=== PATIENT | female | born 1960 | race Caucasian/White ===

== ENCOUNTER → 2017-05-29 | Outpatient (CLI) | payer BC ==
--- NOTE | 2017-05-29 10:16 | REPMRS ---
Patient History The patient states she had a clinical breast exam in Patient had first child at age 32. Family history of prostate cancer in father at age 60. Took hormonal contraceptives for 1 year. Digital Woman Screen Mammo: May 29, 2017 - Exam #: [id number] Bilateral CC and MLO view(s) were taken. Technologist: Rose Zimmerman, Technologist Prior study comparison: April 12, 2016, digital woman screen mammo performed at [facility]. March 06, 2015, digital woman screen mammo performed at [facility]. FINDINGS: There are scattered fibroglandular densities. There has been no change in the appearance of the mammogram from the prior studies. There is a mild amount of residual fibroglandular tissue which is fairly symmetric. There is no interval development of dominant mass, architectural distortion, or clustered microcalcification suggestive of malignancy. ASSESSMENT: BI-RADS/ACR category 1 mammogram. Negative. Recommendation Routine screening mammogram in 1 year (for women over age 40). This mammogram was interpreted with the aid of an FDA-approved computer-aided dectection system. Electronically Signed By: Jere Carter MD 05/29/17 1016
== END ==
LOC: M WHC 08:55
PROVIDERS: ATTEND Internal Medicine
DX: Z12.31 Encounter for screening mammogram for malignant neoplasm of breast (principal)

== ENCOUNTER → 2018-03-27 | Outpatient (REF) | payer BC | LOC: M LAB REF 03-28 12:02 | DX: L02.211 Cutaneous abscess of abdominal wall (principal) ==

== ENCOUNTER → 2018-03-28 | Outpatient (REF) | payer BC | LOC: M LAB REF 11:56 | DX: L02.211 Cutaneous abscess of abdominal wall (principal) | CPT/HCPCS: 87081 ==

== ENCOUNTER → 2018-08-02 | Outpatient (CLI) | payer BC ==
[~2018-08-02] MED LIST: ATOR1TAB19 PO; METF500T13 PO; TRUL0.5I SC
--- NOTE | 2018-08-02 13:40 | REPMRS ---
Patient History The patient states she has not had a clinical breast exam in over a year. Family history of prostate cancer at age 60 in father. Took hormonal contraceptives for 1 year. Digital Woman Screen Mammo: August 02, 2018 - Exam #: [id number] Bilateral CC and MLO view(s) were taken. Technologist: Adriana Ortiz, Technologist Prior study comparison: May 29, 2017, digital woman screen mammo performed at [facility]. April 12, 2016, digital woman screen mammo performed at [facility]. March 06, 2015, digital woman screen mammo performed at [facility]. FINDINGS: The breast tissue is almost entirely fat. There has been no change in the appearance of the mammogram from the prior studies. There is no interval development of dominant mass, architectural distortion, or clustered microcalcification typical of malignancy. 3-D tomosynthesis shows no additional findings. Assessment: BI-RADS/ACR category 1 mammogram. Negative Mammogram. Recommendation Routine screening mammogram of both breasts in 1 year (for women over age 40). This patient's Lifetime Breast Cancer RIsk is estimated at 11.9 %. This mammogram was interpreted with the aid of an FDA-approved computer-aided dectection system. Electronically Signed By: Dwayne Jo MD 08/02/18 [id number]
== END ==
LOC: M WHC 10:25
PROVIDERS: ATTEND Internal Medicine
DX: Z12.31 Encounter for screening mammogram for malignant neoplasm of breast (principal); Z80.42 Family history of malignant neoplasm of prostate

== ENCOUNTER → 2020-05-13 | Outpatient (CLI) | payer BC ==
--- NOTE | 2020-05-13 09:09 | REPMRS ---
Patient History The patient states she has not had a clinical breast exam in over a year. Patient is postmenopausal and had first child at age 32. Family history of prostate cancer at age 60 in father. Took hormonal contraceptives for 1 year. 3D TOMOSYNTHESIS WAS PERFORMED. [facility] lifetime risk for breast cancer is 12.8%. Volpara breast density b. Digital Woman Screen Mammo: May 13, 2020 - Exam #: [id number] Bilateral CC and MLO view(s) were taken. Technologist: Tracy Amin, Technologist Prior study comparison: August 02, 2018, bilateral digital woman screen mammo performed at [facility]. May 29, 2017, digital woman screen mammo performed at [facility]. FINDINGS: There are scattered fibroglandular densities. There has been no change in the appearance of the mammogram from the prior studies. There is a mild amount of residual fibroglandular tissue which is fairly symmetric. There is no interval development of dominant mass, architectural distortion, or clustered microcalcification suggestive of malignancy. Assessment: BI-RADS/ACR category 1 mammogram. Negative Mammogram. Recommendation Routine screening mammogram in 1 year (for women over age 40). This mammogram was interpreted with the aid of an FDA-approved computer-aided dectection system. Electronically Signed By: Jere Carter MD 05/13/20 0909
== END ==
LOC: M WHC 06:26
PROVIDERS: ATTEND Internal Medicine
DX: Z12.31 Encounter for screening mammogram for malignant neoplasm of breast (principal)

== ENCOUNTER → 2020-11-11 | Outpatient (REF) | payer BC | LOC: M LAB REF 11:11 | PROVIDERS: ATTEND Internal Medicine | DX: D64.9 Anemia, unspecified (principal) ==

== ENCOUNTER 2021-04-26 17:54 | Emergency (ER) | payer BC ==
[~2021-04-26] VITALS: Ht 168.9 cm; Wt 148.6 kg
--- OUTSIDE RECORDS SUMMARY | 2021-04-26 17:59 | CCD ---
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 Role Phone Mary Olivarez Unavailable PROBLEMS No Information ALLERGIES No Information ENCOUNTERS from 1960 to 2021-01-28 Encounter Location Date Provider Diagnosis [address] [phone] [place] [address] Jan, Mary Olivarez Diabetes mellitus with hyper glycemia E11.65 IMMUNIZATIONS No Information SOCIAL HISTORY Sex Assigned At : Social History Observation Description Sex Assigned At Unknown REASON FOR REFERRAL No Information VITAL SIGNS Weight 325.4 lbs Jan, Height 5'6.5" in Jan, BMI 51.73 kg/m2 Jan, MEDICATIONS No Information PROCEDURES No Information RESULTS No Results REASON FOR VISIT Follow Up Medical Nutrition Therapy r/t E11.65 Type 2 DM w/ hyperglycemia Goals Section No Information Health Concerns No Information MEDICAL EQUIPMENT No Information MENTAL STATUS No Information FUNCTIONAL STATUS No Information ASSESSMENTS Encounter Date Diagnosis Assessment Notes Treatment Notes Treatm ent Clinical Notes Jan, Diabetes mellitus with hyperglycemia (ICD-10 - E 11.65) Jan, Other Food Allergies: NKFA's Food Intolerance: lactose-uses almond milk REE= 2050 calories/day for weight loss Medical History: Obesity, Type II DM, Hypercholesterolemia, Metabolic Syndrome X, Pure Hypertriglyceridemia 24 hour food recall: Breakfast: 2 eggs and 1 egg white, 1 rye toast w/ butter, coffee w/ creamer ( 20 gm carb) Lunch: 1/4 of whole sub, grapes, chips, 4 oz lemonade (50 gm carb) Dinner: garden salad w/ ranch, 1 biscuit, 1/2 coconut shrimp, 1/2 baked potato (75 gm carb) Snacks: none noted Drinks: water 07/31/20: NO NEW AVAILABLE PER [id number]-0.2% A1c 10.4^ Glucose Fasting- 326^ EAG- 252^ BUN/Cr/GFR wnl Marky/Cr 23.1 B12 NOT AVAILABLE TG 331^ Cholesterol 253^ LDL 128^ HDL 59 TSH NOT AVAILABLE Blood Glucose 11/07-11/11/2020: Fastin, 129, 137, 159,161 ac lunch: 126,150, 120 ac dinner: 127 Pertinent Medications: Tresiba 60 units daily REDUCED TO 45 UNITS DAILY, Rousvastatin 10mg, Trulicity 1.5 weekly INCREASED TO 3.0 11/15/20, Metformin HCL ER 750 mg-2 tabs with dinner, MVI, Vit E-400 units, Vit D-1000 units Failed DM Medications: none noted Activity: Done w/ PT for sciatica-needs to do exercises on her own Eye Exam: havent been in long time- Used to go to [place]- will schedule Foot Exam: Never has had one per patient NEEDS FOOT EXAM FLU shot: Never Covid Immunization: completed w/ 2 doses Dental Visit: Dr. Chandra for peridontal doc-will have a root canal Nutrition Diagnosis: Excessive carbohydrate intake r/t nutrition knowledge d eficit regarding appropriate amount of carbohydrate to consume, as evidenced by previous A1c 10.4%, daily food record, and obesity. Nutrition Prescription: 1) Diet Education: 40-50 gm carb each meal 2) Goal Setting-Patient achieve A1c <7% by next lab draw. 3) Evidence of Learning: Verbalizes Understanding 4) Expected Adherence: Unable to Determine 5) Barriers to Adherence: Time needed to shop for groceries, preparation, and portability of healthy meals; eating too much while dining out Referring provider: Dr. Washington COMMENTS: Patient returned for follow-up MNT r/t Type 2 DM with hyperglycemia, now requiring insulin. Since last appointent patient had visit with provider and found out her A1c had improved to 6.2%!!! Trulicity was increased to 3.0 weekly from 1.5 and patient had been able to reduce from 60 units Tresiba daily to 45 units!! 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 Most blood sugar levels were close to target of 80-130 mg/dl. Reviewed 24 hour recall. Breakfast and lunch did not contain excessive carbohydrate however dinner did as patient was celebrating her 's birthday. Reviewed portion plate booklet and patient had made vegetables for tonche's dinner and she will focus on including with lunch and dinner daily while keeping carb to 50 gm each meal. No problems taking meds or getting refills in a timely manner. Reminded patient non carb foods including: non-starchy vegetables, lean meat, and healthy fats in small amounts, helped to keep her full and did not raise her blood sugar as much as carbohydrate. Next reviewed which food groups contained carbohydrate and the importance of increased fiber content for the carb choices she akes. Next discussed activity. Patient walked whie working. Again discussed wearing a Fit Bit to monitor activity and work on increasing. Advised to purchase a fit bit and monitor her steps with excessive hours of work. Patient could explain the rule of 15 and she could verbalize how to treat. Kenan was given a 2nd copy of meal planning for her work place to use as a reference. Patient seemed to understand and has RDs contact information. GOALS: I will lose to 296 pounds by 6 months-Apr 09 2021 by losing 3-4 pounds a month. 1) Eat 3 meals a day using carb ehokoftl-69-45 gm carb each meal 2) Check BS every am with goal 80-130 and after evening meal with goal under 180 mg/dl. 3) Keep food alex with food portions measured and carb count recorded. 4) Keep blood sugar/insulin record per MD. 5) If I feel funny I will check my blood sugar level. I will follow directions to get my blood sugar back within normal range. Monitor: _x_ Diet _x _WT _x__ Meds _x_ BS log _x_ Food Log _x_Activity PLAN OF TREATMENT Next Appt Details Feb 23, 2021 9-10am Reason: Provider Name:Mary Olivarez, 2021-02- 7 09:00:00 AM, [address] [facility], , [place], [address], Insurance Providers Payer Name Payer Address Payer Phone Insured Name Patient Relati onship to Insured Coverage Start Date Coverage End Date KHAI REYNOSO [facility] [id number] [facility] [place] [address] Chase Aguilar
--- OUTSIDE RECORDS SUMMARY | 2021-04-26 17:59 | CCD ---
Author Author [facility] Organization [facility] Address Unknown Phone Unavailable Care Team Providers Care Order Filler Name Role Phone Mary Olivarez Unavailable PROBLEMS Type Condition ICD9-CM Code [id number] Code Onset Dates Condition S tatus W/U Status Risk SNOMED Code Notes Problem Diabetes mellitus with hyperglycemia E11.65 Act marko confirmed [id number] ALLERGIES No Information ENCOUNTERS from 1960 to 2021-03-19 Encounter Location Date Provider Diagnosis [address] [phone] [place] [address] Mar, Mary Olivarez Diabetes mellitus with hyper glycemia E11.65 IMMUNIZATIONS No Information SOCIAL HISTORY Sex Assigned At : Social History Observation Description Sex Assigned At Unknown REASON FOR REFERRAL No Information VITAL SIGNS Weight 326.4 lbs Mar, Weight-kg 148.05 kg Mar, Height 5'6.5" in Mar, BMI 51.89 kg/m2 Mar, MEDICATIONS No Information PROCEDURES No Information RESULTS No Results REASON FOR VISIT Follow Up Medical Nutrition Therapy r/t E11.65 Type 2 DM w/ hyperglycemia Goals Section No Information Health Concerns No Information MEDICAL EQUIPMENT No Information MENTAL STATUS No Information FUNCTIONAL STATUS No Information ASSESSMENTS Encounter Date Diagnosis Assessment Notes Treatment Notes Treatm ent Clinical Notes Mar, Diabetes mellitus with hyperglycemia (ICD-10 - E 11.65) Mar, Other Food Allergies: NKFA's Food Intolerance: lactose-uses almond milk REE= 2050 calories/day for weight loss Medical History: Obesity, Type II DM, Hypercholesterolemia, Metabolic Syndrome X, Pure Hypertriglyceridemia 24 hour food recall: Breakfast: 1.5 c cheerios, 1/2 c almond milk ( 50m carb) Lunch: 2 soft tacos (34 gm carb) Dinner: 4 oz Kielbasa, 1c summer squash w/ peppers and onins, 1/2 c pasta with mushrooms, slice homemade pie (60 gm carb) Snacks: none noted Drinks: water 60 oz 07/31/20: PER [id number]-9.2% since November 2020 A1c 10.4^ Glucose Fasting- 326^ EAG- 252^ BUN/Cr/GFR wnl Marky/Cr 23.1 B12 NOT AVAILABLE TG 331^ Cholesterol 253^ LDL 128^ HDL 59 TSH NOT AVAILABLE Blood Glucose: 03/10-03/16/2021: Fastin, 128, 156, 137, 125, (corn on cob the night before and hamburger bun) 163,174(pie the night before) Pertinent Medications: Tresiba 60 units daily REDUCED TO 44 UNITS DAILY down to 34 units now 03/16/21, Rousvastatin 10mg, Trulicity 1.5 weekly INCREASED TO 3.0 11/15/20, Metformin HCL ER 750 mg-2 tabs with dinner, MVI, Vit E-400 units, Vit D- 1000 units Failed DM Medications: none noted Activity: Done w/ PT for sciatica-is completing PT exercises on her own daily Eye Exam: havent been in long time- Used to go to [place]- will schedule Foot Exam: Never has had one per patient NEEDS FOOT EXAM FLU shot: Never Covid Immunization: completed w/ 2 doses Dental Visit: Dr. Chandra for peridontal doc-will have a root canal Nutrition Diagnosis: Excessive carbohydrate intake r/t nutrition knowledge deficit regarding appropriate amount of carbohydrate to consume, as evidenced by previous A1c 10.4% improved to 6.2% November 2020, daily food record, and obesity. Nutrition Prescription: 1) Diet Education: 40-50 gm carb each meal 2) Goal Setting-Patient maintain A1c <7% by next lab draw. 3) Evidence of Learning: Verbalizes Understanding 4) Expected Adherence: Unable to Determine-loves to cook and eat carbs 5) Barriers to Adherence: Time needed to shop for groceries, preparation, and portability of healthy meals; eating too much while dining out Referring provider: Dr. Washington COMMENTS: Patient returned for follow-up MNT r/t Type 2 DM with hyperglycemia, requiring insulin along with increase in GLP-1 since last November 2020. Trulicity was increased to 3.0 weekly from 1.5 and patient had been able to reduce from 60 units Tresiba daily to 44 units as of last appointent and today had decreased to 44 units daily!! Bill was reducing carb intake to be able to reduce need for in sulin and help her to lose weight. Bill had been gaining weight for months but this visit she lost 1#, as desired!! Bill kept food record daily and tried to stay between 40-50 gm carb each meal. Patient also recorded fasting blood sugar and on this record as well as units of Tresiba she took. Reviewed 24 hour recall. Breakfast and lunch meals were within carb allotment but dinner exceeded as Kenan made an apple pie and ate a slice. Reviewed portion plate booklet and Bill will focus on keeping carb to 50 gm each meal or less. No problems taking meds or getting refills [...] choices she akes. Next discussed activity. 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 Bill's did move the eliptical into a more appealing spot in the house so she is getting closer to using it, as soon as he finished reassembling it. Patient could explain the rule of 15 and she could verbalize how to treat but had not experienced hypoglycemia since last meeting. Kenan was given a 2nd copy of meal planning for her work place to use as a reference at last visit. Patient seemed to understand and has RDs contact information. GOALS: To continue to be allowed to continue to reduce my insulin and lose weight I will: 1) I will walk one lap around the parking lot 3 times a week on Monday-Monday and . 2) Eat 3 meals a day using carb counting 40-50 gm carb each meal. 2) Check BS every am with goal 80-130 and after evening meal with goal under 180 mg/dl. 3) Keep food diary with food portions measured and carb count recorded. 4) Keep blood sugar/insulin record per MD. 5) If I feel funny I will check my blood sugar level. I will follow directions to get my blood sugar back within normal range. Monitor: _x_ Diet _x _WT _x__ Meds _x_ BS log _x_ Food Log _x_Activity PLAN OF TREATMENT Next Appt Details 04/08/21 4-4:30-pm Reason: Provider Name:Mary Olivarez, 2021-03-3 0 04:00:00 PM, [address] [facility], , [place], [address], Insurance Providers Payer Name Payer Address Payer Phone Insured Name Patient Relati onship to Insured Coverage Start Date Coverage End Date BCBS ANAM REYNOSO PPO [id number] [facility] [place] [address] Chase Aguilar
--- OUTSIDE RECORDS SUMMARY | 2021-04-26 17:59 | CCD | Continuity of Care Document ---
Author Author Cheryl Washington MD Organization Unknown Address [address] [facility] [address] [place] [address] Phone [phone] Care Team Providers Care Brim Edge Trimmer Name Role Phone Jack Washington JR, MD AUTM Unavailable [employer] AUTM [phone] Problems Active Problems Provider Date Metabolic syndrome X Jack Washington MD Onset: 02/21/2011 Pure hypercholesterolemia Jack Washington MD Onset: 02/21 Obesity Jack Washington MD Onset: 02/21/2011 Pure hyperglyceridemia Jack Washington MD Onset: 02/22/20 11 Cellulitis and abscess of trunk YARY Grady Onset: 08/17/2011 Type 2 diabetes mellitus Jack Washington MD Onset: 2016 Social History Type Date Description Comments Sex Unknown ETOH Use Consumes 3 glasses of wine per w [place] Tobacco Use Start: Unknown End: Unknown Patient is a former smoker SMOKED FOR 8YRS 1 DOLORES A DAY Allergies, Adverse Reactions, Alerts Active Allergies Criticality Reaction | Severity Comments Date Sulfa Unable to assess criticality 06/23/2010 Keflex Unable to assess criticality Facial edema and itching 08/22/2011 Medications Active Medications SIG Qnty Indications Ordering Provide r Date Trulicity 3mg/0.5ML Solution Pen-I nject inject 1 subcutaneously weekly 2ml Jack wu MD 11/12/2020 Onetouch Delica Plus Lancets Fine 30G Plus 30G Misc test two times a day and as needed 200units E11.65 Jack Washington MD 09/18/2020 Onetouch Ultra Strips Test Three Times A Week 100units Jack Washington MD 08/17/2020 Novofine 32G X 6 mm Misc Use One A Day With Trieseba 100unkym Washington MD 08/06/2020 Tresiba Flextouch 20 0Unit/ML Solution Pen-Inject inject 50 units under the skin daily - and increase by 2 units every 3 days. 27units Jack Washington MD 07/31/2020 Diflucan 150mg Tablets 1 by mouth repeat every 72 hours x 3 doses then once weekly x 12 weeks 15tabs EMY Salecdo 06/03/2020 Vagifem 10mcg Tablets insert one tablet vaginally nightly for 2 weeks then twice a week 18tabs YARY Grady 08/22/2019 Rosuvastatin Calcium 10mg Tablets Take One Tablet By Mouth Every Day 30tabs Jack Washington MD 07/25/2018 BD Pen Needle/Ultrafine/29G X 12.7mm 29G X 12.7mm Misc use every day E11.9 100units Jack Washington MD 01/06/2017 Onetouch Ultra Blue Strips use two times a day to check blood sugar E11.9 150units Juan khan M.D. 01/06/2017 Metformin HCL ER 750mg Tablets ER 24HR Take 2 Tablets By Mouth With Supper Daily 60tabs Bucky Washington MD 11/17/2011 Multivitamins Tablets 1 po q d Jack Washington MD 04/27/2011 Vitamin E Complex 400Unit Capsules Jack Washington MD 04/27/2011 Vitamin D-1000 1000Unit Tablets 1 by mouth every day 100tabs Jack Washington MD 04/27/2011 Ibuprofen 800mg Tablets Take One Tablet By Mouth Every 6 To 8 Hours With Food Unknown History Medications Trulicity 1.5mg/0.5ML Solution Pen -Inject 1 injection weekly 4ml Jack Washington MD 021 - 11/12/2020 Medications Administered in Office Medication SIG Qnty Indications Ordering Provider Date Therapeutic Injection Injection YARY Grady 10/16/2007 Immunizations Description No Information Available Vital Signs Date Vital Result Comment 03/24/2021 1:50pm BP Systolic 128 mmHg BP Diastolic 80 mmHg Heart Rate 78 /min Height 66.5 inches 5'6.50" Weight 326.00 lb BMI (Body Mass Index) 51.8 kg/m2 11/12/2020 9:37am BP Systolic 124 mmHg BP Diastolic 78 mmHg Heart Rate 76 /min Height 66.5 inches 5'6.50" Weight 321.00 lb BMI (Body Mass Index) 51.0 kg/m2 Results Test Acquired Date Facility Test Result H/L Range Note A1c 03/23/2021 [facility] , Television Station Manager: Dr Jack Washington [place] [address] [phone] Hba1c 5.8 % High <5.7 1 Est Avg Glucose 120 mg/dL High 60 - 110 Comprehensive Chem Profile 03/23/2021 [facility], Television Station Manager: Dr Jack Washington [place] [address] [phone] Glucose 108 mg/dL High 74 - 99 2 BUN 13 mg/dL 7 - 18 Creatinine 0.9 mg/dL 0.6 - 1.3 Sodium 142 mEq/L 136 - 145 Potassium 4.3 mEq/L 3.5 - 5.1 Chloride 105 mEq/L 98 - 107 Carbon Dioxide 32 mEq/L 21 - 32 Calcium 8.7 mg/dL 8.5 - 10.1 Alk. Phosphatase 87 mg/dL 46 - 116 Total Bilirubin 0.6 mg/dL 0.2 - 1.0 Ast (Sgot) 16 U/L 15 - 37 Alt (SGPT) 17 U/L 12 - 78 Albumin 3.4 g/dL 3.4 - 5.0 Total Protein 6.6 g/dL 6.4 - 8.2 A/G Ratio 1.06 CALC 1.00 - 1.90 GFR >= 60 mL/min >60 GFR >= 60 mL/min >60 3 Lipid Profile 03/23/2021 [facility] , Television Station Manager: Dr Jack Washington [place] [address] [phone] Cholesterol 201 mg/dL High 131 - 200 Triglycerides 227 mg/dL High 30 - 150 HDL Cholesterol 52 mg/dL 35 - 60 LDL (Calculated) 104 CALC 50 - 159 Microalbumin/Creatinine Urine 03/23/2021 [facility] Television Station Manager: Dr Jack Washington [place], [place] [id number] [phone] Microalbumin Urine 10.3 mg/L 1.3 - 20.0 Urine Creatinine 142.8 mg/dL High 30.0 - 125.0 Microalb/Creat Ratio 7.2 ug/mg 0.0 - 30.0 Laboratory test finding 11/11/2020 [facility] Television Station Manager: [place] [address] [phone] Thyroid Stimulating Hormone 1.42 uIU/mL 0.3 6 - 3.74 Laboratory test finding 11/11/2020 [facility] [address] [id number] [phone] Vitamin B12 Level > 2000 pg/mL High 247-911 4 A1c 11/11/2020 [facility] Television Station Manager: Dr Jack Washington [place] [address] [phone] Hba1c 6.1 % High <5.7 5 Est Avg Glucose 128 mg/dL High 60 - 110 Basic Metabolic Panel 11/11/2020 [facility] Television Station Manager: [place] [address] [phone] Glucose 161 mg/dL High 74 - 99 6 BUN 14 mg/dL 7 - 18 Creatinine 0.8 mg/dL 0.6 - 1.3 Sodium 139 mEq/L 136 - 145 Potassium 4.3 mEq/L 3.5 - 5.1 Chloride 102 mEq/L 98 - 107 Carbon Dioxide 29 mEq/L 21 - 32 Calcium 8.5 mg/dL 8.5 - 10.1 GFR >= 60 mL/min >60 GFR >= 60 mL/min >60 7 1 Lab Result Notes: Pre-Diabetes 5.7 - 6.4 % Diabetes = or > 6.5% 2 100-125 mg/dL PRE-DIABET ES/FASTING >126 mg/dL DIABETES/FASTING 3 CHRONIC KIDNEY DISEASE STAGI NG PER NKF STAGE I & II GFR >= 60 NORMAL TO MILDLY DECREASED STAGE III GFR 30-59 MODERATELY DECREASED STAGE IV GFR 15-29 SEVERELY DECREASED STAGE V GFR <15 VERY LITTLE GFR LEFT ESRD GFR <15 ON HIMS MANAGER 4 VITAMIN B12 NORMAL RANGE NORMAL 247 - 911 PG/ML INDETERMINATE 211 - 246 PG/ML DEFICIENT LESS THAN 211 PG/ML 5 Lab Result Notes: Pre-Diabetes 5.7 - 6.4 % Diabetes = or > 6.5% 6 100-125 mg/dL PRE-DIABET ES/FASTING >126 mg/dL DIABETES/FASTING 7 CHRONIC KIDNEY DISEASE STAGI NG PER NKF STAGE I & II GFR >= 60 NORMAL TO MILDLY DECREASED STAGE III GFR 30-59 MODERATELY DECREASED STAGE IV GFR 15-29 SEVERELY DECREASED STAGE V GFR <15 VERY LITTLE GFR LEFT ESRD GFR <15 ON HIMS MANAGER Procedures Date Code Description Status 11/12/2020 54902 Office/Outpatient Established Lo w MDM 20-29 Min Completed 05/13/2020 [id number] Mammogram Completed 08/02/2018 [id number] Mammogram Completed 05/29/2017 [id number] Mammogram Completed 04/12/2016 [id number] Mammogram Completed 07/14/2015 [id number] Colonoscopy Completed 03/06/2015 [id number] Mammogram Completed 12/25/2013 [id number] Mammogram Completed 05/15/2012 [id number] Mammogram Completed 05/12/2011 [id number] Mammogram Completed 05/04/2010 [id number] Mammogram Completed 01/30/2008 [id number] Bone Mineral Density Test Comple genaro 07/19/2004 [id number] Colonoscopy Completed Medical Devices Description No Information Available Encounters Type Date Location Provider Dx Diagnosis Office Visit 11/12/2020 9:40a [facility] Jack Washington MD E11.42 Type 2 diabetes mellitus with diabetic p olyneuropathy Z79.4 residential (current) use of i nsulin E78.00 Pure hypercholesterolemia, u nspecified E66.01 Morbid (severe) obesity due to excess calories Z68.43 Body mass index [BMI] 50.0-5 9.9, adult Assessments Date Code Description Provider 11/12/2020 E11.42 Type 2 diabetes mellitus with di abetic polyneuropathy Jack Washington MD 11/12/2020 Z79.4 emt intermediate (current) use of insul in Jack Washington MD 11/12/2020 E78.00 Pure hypercholesterolemia, unspe cified Jack Washington MD 11/12/2020 E66.01 Morbid (severe) obesity due to e xcess calories Jack Washington MD 11/12/2020 Z68.43 Body mass index [BMI] 50.0-59.9, adult Jack Washington MD 11/11/2020 D64.9 Anemia, unspecified Jack adam MD 11/11/2020 D64.9 Anemia, unspecified Lab Schedule 11/11/2020 E11.65 Type 2 diabetes mellitus with hy perglycemia Jack Washington MD 11/11/2020 E11.65 Type 2 diabetes mellitus with hy perglycemia Lab Schedule 11/11/2020 E78.00 Pure hypercholesterolemia, unspe cified Jack Washington MD 11/11/2020 E78.00 Pure hypercholesterolemia, unspe cified Lab Schedule Plan of Treatment No Information Available Functional Status Description No Information Available Mental Status Description No Information Available Referrals Description No Information Available
--- OUTSIDE RECORDS SUMMARY | 2021-04-26 17:59 | CCD | Continuity of Care Document ---
Author Author Cheryl Washington MD Organization Unknown Address [address] [facility] [address] [place] [address] Phone [phone] Care Team Providers Care Rodeo Clown Name Role Phone Jack Washington JR, MD AUTM Unavailable [employer] AUTM [phone] Problems Active Problems Provider Date Metabolic syndrome [...] Consumes 3 glasses of wine per w [place] Tobacco Use Start: Unknown End: Unknown Patient [...] once weekly x 12 weeks 15tabs EMY Salcedo 06/03/2020 Vagifem 10mcg Tablets insert one tablet [...] Test Result H/L Range Note A1c 03/23/2021 [facility] , Research Coordinator: Dr Jack [place] [address] [phone] Hba1c 5.8 % High <5.7 1 Est Avg Glucose 120 mg/dL High 60 - 110 Comprehensive Chem Profile 03/23/2021 [facility], Research Coordinator: [place] Jack [place] [address] [phone] Glucose 108 mg/dL High 74 - 99 [...] 60 mL/min >60 3 Lipid Profile 03/23/2021 [facility] , Research Coordinator: Dr Jack [place] [address] [phone] Cholesterol 201 mg/dL High 131 - 200 Triglycerides 227 mg/dL High 30 - 150 HDL Cholesterol 52 mg/dL 35 - 60 LDL (Calculated) 104 CALC 50 - 159 Microalbumin/Creatinine Urine 03/23/2021 [facility] Research Coordinator: Dr Jack Washington [place], [place] [id number] [phone] Microalbumin Urine 10.3 mg/L 1.3 - 20.0 Urine Creatinine 142.8 mg/dL High 30.0 - 125.0 Microalb/Creat Ratio 7.2 ug/mg 0.0 - 30.0 Laboratory test finding 11/11/2020 [facility] Research Coordinator: [place] [address] [phone] Thyroid Stimulating Hormone 1.42 uIU/mL 0.3 6 - 3.74 Laboratory test finding 11/11/2020 [facility] [address] [id number] [phone] Vitamin B12 Level > 2000 pg/mL High 247-911 4 A1c 11/11/2020 [facility] Research Coordinator: Dr Jack Washington [place] [id number] [phone] Hba1c 6.1 % High <5.7 5 Est Avg Glucose 128 mg/dL High 60 - 110 Basic Metabolic Panel 11/11/2020 [facility] Research Coordinator: [place] [address] [phone] Glucose 161 mg/dL High 74 - 99 [...] LITTLE GFR LEFT ESRD GFR <15 ON AGRICULTURAL EDUCATION TEACHER 4 VITAMIN B12 NORMAL RANGE NORMAL 247 [...] LITTLE GFR LEFT ESRD GFR <15 ON AGRICULTURAL EDUCATION TEACHER Procedures Date Code Description Status 03/24/2021 48394 Office/Outpatient Established Mo d MDM 30-39 Min Completed 11/12/2020 11961 Office/Outpatient Established Lo w MDM 20-29 Min Completed 05/13/2020 [id number] Mammogram Completed 08/02/2018 [id number] Mammogram Completed 05/29/2017 [id number] Mammogram Completed 04/12/2016 [id number] Mammogram Completed 07/14/2015 [id number] Colonoscopy Completed 03/06/2015 [id number] Mammogram Completed 12/25/2013 [id number] Mammogram Completed 05/15/2012 [id number] Mammogram Completed 05/12/2011 [id number] Mammogram Completed 05/04/2010 [id number] Mammogram Completed 01/30/2008 [id number] Bone Mineral Density Test Comple geanro 07/19/2004 [id number] Colonoscopy Completed Medical Devices Description No Information Available Encounters Type Date Location Provider Dx Diagnosis Office Visit 03/24/2021 [facility] E11.42 Type 2 diabetes mellitus with diabetic p olyneuropathy Z79.4 machine sorter (current) use of i nsulin E78.00 Pure hypercholesterolemia, u nspecified I87.2 Venous insufficiency (chroni c) (peripheral) E66.01 Morbid (severe) obesity due to excess calories Z68.43 Body mass index [BMI] 50.0-5 9.9, adult Office Visit 11/12/2020 9:40a [facility] E11.42 Type 2 diabetes mellitus with diabetic p olyneuropathy Z79.4 machine sorter (current) use of i nsulin E78.00 Pure hypercholesterolemia, u nspecified E66.01 Morbid (severe) obesity due to excess calories Z68.43 Body mass index [BMI] 50.0-5 9.9, adult Assessments Date Code Description Provider 03/24/2021 E11.42 Type 2 diabetes mellitus with di abetic polyneuropathy Jack Washington MD 03/24/2021 Z79.4 senior living (current) use of insul in Jack Washington MD 03/24/2021 E78.00 Pure hypercholesterolemia, unspe cified Jack Washington MD 03/24/2021 I87.2 Venous insufficiency (chronic) ( peripheral) Jack Washington MD 03/24/2021 E66.01 Morbid (severe) obesity due to e xcess calories Jack Washington MD 03/24/2021 Z68.43 Body mass index [BMI] 50.0-59.9, adult Jack Washington MD 03/23/2021 E11.65 Type 2 diabetes mellitus with hy perglycemia Jack Washington MD 03/23/2021 E11.65 Type 2 diabetes mellitus with hy perglycemia Lab Schedule 03/23/2021 E78.00 Pure hypercholesterolemia, unspe cified Jack Washington MD 03/23/2021 E78.00 Pure hypercholesterolemia, unspe cified Lab Schedule 11/12/2020 E11.42 Type 2 diabetes mellitus with di abetic polyneuropathy Jack Washington MD 11/12/2020 Z79.4 senior living (current) use of insul in Jack Washington [...] unspe cified Lab Schedule Plan of Treatment Future Appointment(s):* 07/27/2021 8:10 am - Lab Schedule at [facility] * 07/28/2021 2:45 pm - Jack Washington MD at [facility] 03/24/2021 - Jack Washington MD* E11.42 Type 2 diabetes mellitus with diabetic polyneuropathy * Z79.4 machine sorter (current) use of insulin * E78.00 Pure hypercholesterolemia, unspecified * I87.2 Venous insufficiency (chronic) (peripheral) * E66.01 Morbid (severe) obesity due to excess calories * Z68.43 Body mass index [BMI] 50.0-59.9, adult Functional Status Description No Information Available Mental Status Description No Information Available Referrals Description No Information Available
--- OUTSIDE RECORDS SUMMARY | 2021-04-26 17:59 | CCD | Continuity of Care Document ---
Author Author Lab Schedule, Cheryl Organization Unknown Address [address] [address] Phone Unavailable Care Team Providers Care Music Assistant Name Role Phone Jack Washington JR, MD AUTM Unavailable [employer] AUTM [phone] Problems Active Problems Provider Date Metabolic syndrome X Jack Washington MD Onset: 02/21/2011 Pure hypercholesterolemia Jack Washington MD Onset: 02/21 Obesity Jack Washington MD Onset: 02/21/2011 Pure hyperglyceridemia Jack Washington MD Onset: 02/22/20 11 Cellulitis and abscess of trunk Marilee Pinedo, YARY Onset: 08/17/2011 Type 2 diabetes mellitus Jack Washington MD Onset: 2016 Social History Type Date Description Comments Sex Unknown ETOH Use Consumes 3 glasses of wine per w ak chin Tobacco Use Start: Unknown End: Unknown Patient [...] Misc Use One A Day With Trieseba 100units Jack Washington MD 08/06/2020 Tresiba Flextouch 20 0Unit/ML [...] Test Result H/L Range Note A1c 03/23/2021 [facility] , Drop Press Hand: [place] [id number] [phone] Hba1c 5.8 % High <5.7 1 Est Avg Glucose 120 mg/dL High 60 - 110 Comprehensive Chem Profile 03/23/2021 [facility], Drop Press Hand: [place] [id number] [phone] Glucose 108 mg/dL High 74 - 99 [...] 60 mL/min >60 3 Lipid Profile 03/23/2021 [facility] , Drop Press Hand: Dr Jack Torres MD [id number] [phone] Cholesterol 201 mg/dL High 131 - 200 Triglycerides 227 mg/dL High 30 - 150 HDL Cholesterol 52 mg/dL 35 - 60 LDL (Calculated) 104 CALC 50 - 159 Microalbumin/Creatinine Urine 03/23/2021 [facility], Drop Press Hand: Dr Jack Washington [place], [place] [id number] [phone] Microalbumin Urine 10.3 mg/L 1.3 - 20.0 Urine Creatinine 142.8 mg/dL High 30.0 - 125.0 Microalb/Creat Ratio 7.2 ug/mg 0.0 - 30.0 Laboratory test finding 11/11/2020 [facility] Drop Press Hand: [place] [address] [phone] Thyroid Stimulating Hormone 1.42 uIU/mL 0.3 6 - 3.74 Laboratory test finding 11/11/2020 [facility] [address] [place] [address] [phone] Vitamin B12 Level > 2000 pg/mL High 247-911 4 A1c 11/11/2020 [facility] Drop Press Hand: [place] [address] [phone] Hba1c 6.1 % High <5.7 5 Est Avg Glucose 128 mg/dL High 60 - 110 Basic Metabolic Panel 11/11/2020 [facility] Drop Press Hand: [place] [address] [phone] Glucose 161 mg/dL High 74 - 99 [...] LITTLE GFR LEFT ESRD GFR <15 ON MYCOLOGY TEACHER 4 VITAMIN B12 NORMAL RANGE NORMAL [...] LITTLE GFR LEFT ESRD GFR <15 ON MYCOLOGY TEACHER Procedures Date Code Description Status 11/12/2020 38840 Office/Outpatient Established Lo w MDM 20-29 Min Completed 05/13/2020 [id number] Mammogram Completed 08/02/2018 [id number] Mammogram Completed 05/29/2017 [id number] Mammogram Completed 04/12/2016 [id number] Mammogram Completed 07/14/2015 [id number] Colonoscopy Completed 03/06/2015 [id number] Mammogram Completed 12/25/2013 [id number] Mammogram Completed 05/15/2012 [id number] Mammogram Completed 05/12/2011 [id number] Mammogram Completed 05/04/2010 [id number] Mammogram Completed 01/30/2008 [id number] Bone Mineral Density Test Comple genaro 07/19/2004 [id number] Colonoscopy Completed Medical Devices Description No Information Available Encounters Type Date Location Provider Dx Diagnosis Office Visit 11/12/2020 9:40a [facility] Jack Washington MD E11.42 Type 2 diabetes mellitus with diabetic p olyneuropathy Z79.4 detention (current) use of i nsulin E78.00 Pure hypercholesterolemia, u nspecified E66.01 Morbid (severe) obesity due to excess calories Z68.43 Body mass index [BMI] 50.0-5 9.9, adult Assessments Date Code Description Provider 03/24/2021 E11.42 Type 2 diabetes mellitus with di abetic polyneuropathy Jack Washington MD 03/24/2021 Z79.4 detention (current) use of insul in Jack Washington [...] abetic polyneuropathy Jack Washington MD 11/12/2020 Z79.4 ferry terminal agent (current) use of insul in Jack Washington [...] 07/27/2021 8:10 am - Lab Schedule at [facility] * 07/28/2021 2:45 pm - Jack Washington MD at [facility] 03/24/2021 - Jack Washington MD* E11.42 Type 2 diabetes mellitus with diabetic polyneuropathy * Z79.4 ferry terminal agent (current) use of insulin * E78.00 Pure hypercholesterolemia, unspecified * I87.2 Venous insufficiency (chronic) (peripheral) * E66.01 Morbid (severe) obesity due to excess calories * Z68.43 Body mass index [BMI] 50.0-59.9, adult Functional Status Description No Information Available Mental Status Description No Information Available Referrals Description No Information Available
--- OUTSIDE RECORDS SUMMARY | 2021-04-26 17:59 | CCD | Continuity of Care Document ---
Author Author Lab Schedule, Cheryl Organization Unknown Address [address] [address] Phone Unavailable Care Team Providers Care Dcs Engineer Name Role Phone Jack Washington JR, MD AUTM Unavailable [employer] AUTM [phone] Problems Active Problems Provider Date Metabolic syndrome X Jack Washington MD Onset: 02/21/2011 Pure hypercholesterolemia Jack Washington MD Onset: 02/21 Obesity Jack Washington MD Onset: 02/21/2011 Pure hyperglyceridemia Jack Washington MD Onset: 02/22/20 11 Cellulitis and abscess of trunk Marilee Pinedo, YARY Onset: 08/17/2011 Type 2 diabetes mellitus Jack Wsahington MD Onset: 2016 Social History Type Date Description Comments Sex Unknown ETOH Use Consumes 3 glasses of wine per w tangirnaq Tobacco Use Start: Unknown End: Unknown Patient [...] Test Result H/L Range Note A1c 03/23/2021 [facility] , Film Producer: [place] [id number] [phone] Hba1c 5.8 % High <5.7 1 Est Avg Glucose 120 mg/dL High 60 - 110 Comprehensive Chem Profile 03/23/2021 [facility], Film Producer: [place] [id number] [phone] Glucose 108 mg/dL High 74 - 99 [...] 60 mL/min >60 3 Lipid Profile 03/23/2021 [facility] , Film Producer: Dr Jack Torres [place] [id number] [phone] Cholesterol 201 mg/dL High 131 - 200 Triglycerides 227 mg/dL High 30 - 150 HDL Cholesterol 52 mg/dL 35 - 60 LDL (Calculated) 104 CALC 50 - 159 Microalbumin/Creatinine Urine 03/23/2021 [facility], Film Producer: Dr Jack Washington [place], [place] [id number] [phone] Microalbumin Urine 10.3 mg/L 1.3 - 20.0 Urine Creatinine 142.8 mg/dL High 30.0 - 125.0 Microalb/Creat Ratio 7.2 ug/mg 0.0 - 30.0 Laboratory test finding 11/11/2020 [facility] Film Producer: [place] [address] [phone] Thyroid Stimulating Hormone 1.42 uIU/mL 0.3 6 - 3.74 Laboratory test finding 11/11/2020 [facility] [address] [place] [address] [phone] Vitamin B12 Level > 2000 pg/mL High 247-911 4 A1c 11/11/2020 [facility] Film Producer: [place] [address] [phone] Hba1c 6.1 % High <5.7 5 Est Avg Glucose 128 mg/dL High 60 - 110 Basic Metabolic Panel 11/11/2020 [facility] Film Producer: [place] [address] [phone] Glucose 161 mg/dL High 74 - 99 [...] LITTLE GFR LEFT ESRD GFR <15 ON DEPUTY CONTROLLER 4 VITAMIN B12 NORMAL RANGE NORMAL 247 [...] LITTLE GFR LEFT ESRD GFR <15 ON DEPUTY CONTROLLER Procedures Date Code Description Status 11/12/2020 66260 Office/Outpatient Established Lo w MDM 20-29 Min Completed 05/13/2020 [id number] Mammogram Completed 08/02/2018 [id number] Mammogram Completed 05/29/2017 [id number] Mammogram Completed 04/12/2016 [id number] Mammogram Completed 07/14/2015 [id number] Colonoscopy Completed 03/06/2015 [id number] Mammogram Completed 12/25/2013 [id number] Mammogram Completed 05/15/2012 [id number] Mammogram Completed 05/12/2011 [id number] Mammogram Completed 05/04/2010 [id number] Mammogram Completed 01/30/2008 [id number] Bone Mineral Density Test Comple genaro 07/19/2004 [id number] Colonoscopy Completed Medical Devices Description No Information Available Encounters Type Date Location Provider Dx Diagnosis Office Visit 11/12/2020 9:40a [facility] Jack Washington MD E11.42 Type 2 diabetes mellitus with diabetic p olyneuropathy Z79.4 detention (current) use of i nsulin E78.00 Pure hypercholesterolemia, u nspecified E66.01 Morbid (severe) obesity due to excess calories Z68.43 Body mass index [BMI] 50.0-5 9.9, adult Assessments Date Code Description Provider 11/12/2020 E11.42 Type 2 diabetes mellitus with di abetic polyneuropathy Jack Washington MD 11/12/2020 Z79.4 detention (current) use of insul in [...]
--- OUTSIDE RECORDS SUMMARY | 2021-04-26 17:59 | CCD ---
Author Author [facility] Organization [facility] Address Unknown Phone Unavailable Care Team Providers Care [employer] Name Role Phone Mary Olivarez Unavailable PROBLEMS Type Condition ICD9-CM Code [id number] Code Onset Dates Condition S tatus W/U Status Risk SNOMED Code Notes Problem Diabetes mellitus with hyperglycemia E11.65 Act marko confirmed [id number] ALLERGIES No Information ENCOUNTERS from 1960 to 2021-04-15 Encounter Location Date Provider Diagnosis [address] [phone] [place] [address] Mar, Mary Olivarez Diabetes mellitus with hyper glycemia E11.65 IMMUNIZATIONS No Information SOCIAL HISTORY Sex Assigned At : Social History Observation Description Sex Assigned At Unknown REASON FOR REFERRAL No Information VITAL SIGNS Weight 327.7 lbs Mar, Weight-kg 148.64 kg Mar, Height 5'6.5" in Mar, BMI 52.09 kg/m2 Mar, MEDICATIONS No Information PROCEDURES No [...] Pure Hypertriglyceridemia 24 hour food recall: Breakfast: oatmeal w/ peanut butter and blueberries, 1/2 c almond milk (45 gm carb) Lunch: 1/2 salami sandwich w/ cheese, dante lettuce on wheat w/ barron (34 gm carb) PM: wine tasting at business Dinner: spaghetti w/ meat sauce with mushrooms, slice homemade pie (60 gm carb) Snacks: none noted Drinks: water 60 oz LABS: 03/23/21: A1C-5.8%, EAG-120, gluc-108, B/Cr/GFR, Ca, liver enzymes-wnl, Chol - 201^, TG-227^, HDL-52, LDL-104, marky/cr-7.2 PER SLRIBJF-A4P-2.2% since November 2020 07/31/20: A1c 10.4^ Glucose Fasting- 326^ EAG- 252^ BUN/Cr/GFR wnl Marky/Cr 23.1 B12 NOT AVAILABLE TG 331^ Cholesterol 253^ LDL 128^ HDL 59 TSH NOT AVAILABLE Blood Glucose: 04/02-04/08/2021 (only 16 units of Toujeo daily now): am-182, 162, 176, 196, 174, 187, 235(after spaghetti, wine testing, bread) Pertinent Medications: Tresiba 60 units NOW 16 UNITS A DAY-SINCE 04/05/21!!, Rousvastatin 10mg, Trulicity 1.5 weekly INCREASED TO 3.0 11/15/20, Metformin HCL ER 750 mg-2 tabs with dinner, MVI, Vit E-400 units, Vit D-1000 units Failed DM Medications: none noted Activity: Done w/ PT for sciatica-is completing PT exercises on her own daily Eye Exam: havent been in long time- Used to go to [place]- will schedule Foot Exam: Never has had one per patient NEEDS FOOT EXAM FLU shot: Never Covid Immunization: completed w/ 2 doses Dental Visit: Dr. Chandra for peridontal doc-will have a root canal Nutrition Diagnosis: Excessive carbohydrate intake r/t failure to apply nutrition knowledge regarding appropriate amount of carbohydrate to consume, as evidenced by previous A1c 10.4% improved to 5.8% on 03/23/2021, daily food record, and obesity. Nutrition Prescription: 1) Diet Education: 40-50 gm carb each meal 2) Goal Setting-Patient maintain A1c <7% by next lab draw without hypoglycemia. 3) Evidence of Learning: Verbalizes Understanding 4) [...] Trulicity was increased to 3.0 weekly from 1.11 nov 2020 and patient had been able to reduce from 60 units Tresiba daily to 16 units as of 04/05/21. Since this change patient had experienced higher fasting blood sugar levels and patient is aware need to walk more for exercise and consistently keep carbs to 40-50 gm per meal. Bill was reducing carb intake to be able to reduce need for insulin and help her to lose weight. Bill had been gaining weight for months but this visit she maintained. Bill kept food record daily and tried to stay between 40-50 gm carb each meal. Patient also recorded fasting blood sugar and on this record as well as units of Tresiba she took. Reviewed 24 hour recall. Breakfast and lunch meals were within carb allotment but dinner exceeded as Kenan consumed too much bread and pasta. Reviewed portion plate booklet and Bill will focus on keeping carb to 50 gm each meal or less. No problems taking meds or getting refills in a timely manner. Reminded patient non carb foods including: non- starchy vegetables, lean meat, and healthy fats in small amounts, helped to keep her full and did not raise her blood sugar as much as carbohydrate. Next reviewed which food groups contained carbohydrate and the importance of increas ed fiber content for the carb choices she akes. Next discussed activity. 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 Bill's did move the eliptical into a more appealing spot in the house it is now ready to be used. Encuraged patient to use 2-3 minutes each day and increase as able. Patient could explain the rule of 15 and she could verbalize how to treat but had not experienced hypoglycemia since last meeting. Patient seemed to understand and has RDs contact information. GOALS: To continue to be allowed to reduce my insulin and lose weight I will: 1) I will walk one lap around the parking lot 3 times a week on Monday-Monday and or use elliptical at home. 2) Eat 3 meals a day using [...] _x_Activity PLAN OF TREATMENT Next Appt Details MonMay 12, 2021 3-4 pm Reason: Provider Name:Mary Olivarez, 2020-11-0 3 03:00:00 PM, [address] [facility], , [place], [address], Insurance Providers Payer Name Payer Address Payer Phone Insured Name Patient Relati onship to Insured Coverage Start Date Coverage End Date BCKHAI REYNOSO PPO [phone] [facility] [employer] [place] [id number] Chase Aguilar
--- OUTSIDE RECORDS SUMMARY | 2021-04-26 17:59 | CCD ---
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 Role Phone Mary Olivarez Unavailable PROBLEMS Type Condition ICD9-CM Code [id number]-SS Code Onset Dates Condition S tatus W/U Status Risk SNOMED Code Notes Problem Diabetes mellitus with hyperglycemia E11.65 Act marko confirmed [id number] ALLERGIES No Information ENCOUNTERS from 1960 to 2021-02-26 Encounter Location Date Provider Diagnosis [address] [phone] [place] [address] Feb, Mary Olivarez Diabetes mellitus with hyper glycemia E11.65 IMMUNIZATIONS No Information SOCIAL HISTORY Sex Assigned At : Social History Observation Description Sex Assigned At Unknown REASON FOR REFERRAL No Information VITAL SIGNS Weight 327.2 lbs Feb, Weight-kg 148.42 kg Feb, Height 5'6.5" in Feb, BMI 52.01 kg/m2 Feb, MEDICATIONS No Information PROCEDURES No Information RESULTS No Results REASON FOR VISIT Follow Up Medical Nutrition Therapy r/t E11.65 Type 2 DM w/ hyperglycemia Goals Section No Information Health Concerns No Information MEDICAL EQUIPMENT No Information MENTAL STATUS No Information FUNCTIONAL STATUS No Information ASSESSMENTS Encounter Date Diagnosis Assessment Notes Treatment Notes Treatm ent Clinical Notes Feb, Diabetes mellitus with hyperglycemia (ICD-10 - E 11.65) Feb, Other Food Allergies: NKFA's Food Intolerance: lactose-uses almond milk REE= 2050 calories/day for weight loss Medical History: Obesity, Type II DM, Hypercholesterolemia, Metabolic Syndrome X, Pure Hypertriglyceridemia 24 hour food recall: Breakfast: Oatmeal with peanut butter and blueberries ( 52m carb) Lunch: 2 soft tacos, 1 cookie (75 gm carb) Dinner: 2 soft tacos and 1 chocolate chip muffin (120 gm carb) Snacks: none noted Drinks: water 60 oz 07/31/20: NO NEW AVAILABLE PER [id number]-2.2% A1c 10.4^ Glucose Fasting- 326^ EAG- 252^ BUN/Cr/GFR wnl Marky/Cr 23.1 B12 NOT AVAILABLE TG 331^ Cholesterol 253^ LDL 128^ HDL 59 TSH NOT AVAILABLE Blood Glucose 02/17-02/23/2021: Fastin, 132, 175, 144, 130, 156, 143 Pertinent Medications: Tresiba 60 units daily REDUCED TO 44 UNITS DAILY, Rousvastatin 10mg, Trulicity 1.5 weekly INCREASED TO 3.0 11/15/20, Metformin HCL ER 750 mg-2 tabs with dinner, MVI, Vit E-400 units, Vit D-1000 units Failed DM Medications: none noted Activity: Done w/ PT for sciatica-is completing PT exercises on her own daily Eye Exam: havent been in long time- Used to go to [place]- will schedule Foot Exam: Never has had [...] hyperglycemia, requiring insulin along with increase in GLP-1. Trulicity was increased to 3.0 weekly from 1.5 and patient had been able to reduce from 60 units Tresiba daily to 44 units!! Bill kept food record daily and recorded fasting blood sugar on this record. Now needed to get back to counting carbohydrate as her carbohydrate intake had increased again. Fasting blood sugar levels were higher than last visitr. Discussed need to reduce carb intake so she could continue to reduce insulin per MD directive to be able to lose weight. She had now gained 9 pounds!!! Reviewed 24 hour recall. All meals were above 40-50 gm carb allowance with lunch and dinner 1.5-3 times this!! Reviewed portion plate booklet and patient had made vegetables for [employer]'s dinner and she will focus on including [...] choices she akes. Next discussed activity. Patient now was able to walk around the parking lot 2 time s!! Again discussed wearing a Fit Bit to monitor activity and work on increasing steps. Advised to purchase a fit bit and [...] Eat 3 meals a day using carb gnalzajr-53-90 gm carb each meal 2) Check BS [...] _x_Activity PLAN OF TREATMENT Next Appt Details TuMar 16, 2021 2-3pm Reason: Provider Name:Mary Olivarez, 2021-03-0 7 02:00:00 PM, [address] [facility], , [place], [address], Insurance Providers Payer Name Payer Address Payer Phone Insured Name Patient Relati onship to Insured Coverage Start Date Coverage End Date BCBS ANAM REYNOSO O [phone] [facility] [place] [id number] Chase Aguilar
--- OUTSIDE RECORDS SUMMARY | 2021-04-26 18:00 | CCD ---
Author Author [facility] Organization [facility] Address Unknown Phone Unavailable Care Team Providers Care Director Of Architecture Name Role Phone LePine, M Radha LUMBER CHAIN OFFBEARER Unavailable Unavailable LePine, M Radha LUMBER CHAIN OFFBEARER Unavailable Unavailable LePine, M Radha LUMBER CHAIN OFFBEARER Unavailable Unavailable LePine, M Radha LUMBER CHAIN OFFBEARER Unavailable Unavailable LePine, M Radha LUMBER CHAIN OFFBEARER Unavailable Unavailable LePine, M Radha LUMBER CHAIN OFFBEARER Unavailable Unavailable LePine, M Radha LUMBER CHAIN OFFBEARER Unavailable Unavailable LePine, M Radha LUMBER CHAIN OFFBEARER Unavailable Unavailable LePine, M Radha LUMBER CHAIN OFFBEARER Unavailable Unavailable LePine, M Radha LUMBER CHAIN OFFBEARER Unavailable Unavailable LePine, M Radha LUMBER CHAIN OFFBEARER Unavailable Unavailable LePine, M Radha LUMBER CHAIN OFFBEARER Unavailable Unavailable LePine, M Radha LUMBER CHAIN OFFBEARER Unavailable Unavailable LePine, M Radha LUMBER CHAIN OFFBEARER Unavailable Unavailable LePine, M Radha LUMBER CHAIN OFFBEARER Unavailable Unavailable LePine, M Radha LUMBER CHAIN OFFBEARER Unavailable Unavailable LePine, M Radha LUMBER CHAIN OFFBEARER Unavailable Unavailable LePine, M Radha LUMBER CHAIN OFFBEARER Unavailable Unavailable LePine, M Radha LUMBER CHAIN OFFBEARER Unavailable Unavailable LePine, M Radha LUMBER CHAIN OFFBEARER Unavailable Unavailable LePine, M Radha LUMBER CHAIN OFFBEARER Unavailable Unavailable LePine, M Radha LUMBER CHAIN OFFBEARER Unavailable Unavailable LePine, M Radha LUMBER CHAIN OFFBEARER Unavailable Unavailable LePine, M Radha LUMBER CHAIN OFFBEARER Unavailable Unavailable LePine, M Radha LUMBER CHAIN OFFBEARER Unavailable Unavailable LePine, M Radha LUMBER CHAIN OFFBEARER Unavailable Unavailable LePine, M Radha LUMBER CHAIN OFFBEARER Unavailable Unavailable LePine, M Radha LUMBER CHAIN OFFBEARER Unavailable Unavailable LePine, M Radha LUMBER CHAIN OFFBEARER Unavailable Unavailable LePine, M Radha LUMBER CHAIN OFFBEARER Unavailable Unavailable LePine, M Radha LUMBER CHAIN OFFBEARER Unavailable Unavailable LePine, M Radha LUMBER CHAIN OFFBEARER Unavailable Unavailable LePine, M Radha LUMBER CHAIN OFFBEARER Unavailable Unavailable LePine, M Radha LUMBER CHAIN OFFBEARER Unavailable Unavailable LePine, M Radha LUMBER CHAIN OFFBEARER Unavailable Unavailable LePine, M Radha LUMBER CHAIN OFFBEARER Unavailable Unavailable LePine, M Radha LUMBER CHAIN OFFBEARER Unavailable Unavailable LePine, M Radha LUMBER CHAIN OFFBEARER Unavailable Unavailable LePine, M Radha LUMBER CHAIN OFFBEARER Unavailable Unavailable LePine, M Radha LUMBER CHAIN OFFBEARER Unavailable Unavailable LePine, M Radha LUMBER CHAIN OFFBEARER Unavailable Unavailable LePine, M Radha LUMBER CHAIN OFFBEARER Unavailable Unavailable LePine, M Radha LUMBER CHAIN OFFBEARER Unavailable Unavailable LePine, M Radha LUMBER CHAIN OFFBEARER Unavailable Unavailable LePine, M Radha LUMBER CHAIN OFFBEARER Unavailable Unavailable LePine, M Radha LUMBER CHAIN OFFBEARER Unavailable Unavailable LePine, M Radha LUMBER CHAIN OFFBEARER Unavailable Unavailable LePine, M Radha LUMBER CHAIN OFFBEARER Unavailable Unavailable LePine, M Radha LUMBER CHAIN OFFBEARER Unavailable Unavailable LePine, M Radha LUMBER CHAIN OFFBEARER Unavailable Unavailable LePine, M Radha LUMBER CHAIN OFFBEARER Unavailable Unavailable LePine, M Radha LUMBER CHAIN OFFBEARER Unavailable Unavailable LePine, M Radha LUMBER CHAIN OFFBEARER Unavailable Unavailable LePine, M Radha LUMBER CHAIN OFFBEARER Unavailable Unavailable LePine, M Radha LUMBER CHAIN OFFBEARER Unavailable Unavailable LePine, M Radha LUMBER CHAIN OFFBEARER Unavailable Unavailable LETTIERE, A SYED PA Unavailable Unavailable LETTIERE, A SYED PA Unavailable Unavailable LETTIERE, A SYED PA Unavailable Unavailable LETTIERE, A SYED PA Unavailable Unavailable LETTIERE, A SYED PA Unavailable Unavailable LETTIERE, A SYED PA Unavailable Unavailable LETTIERE, A SYED PA Unavailable Unavailable LETTIERE, A SYED PA Unavailable Unavailable LETTIERE, A SYED PA Unavailable Unavailable LETTIERE, A SYED PA Unavailable Unavailable LETTIERE, A SYED PA Unavailable Unavailable LETTIERE, A SYED PA Unavailable Unavailable LETTIERE, A SYED PA Unavailable Unavailable LETTIERE, A SYED PA Unavailable Unavailable LETTIERE, A SYED PA Unavailable Unavailable LETTIERE, A SYED PA Unavailable Unavailable LETTIERE, A SYED PA Unavailable Unavailable LETTIERE, A SYED PA Unavailable Unavailable LETTIERE, A SYED PA Unavailable Unavailable LETTIERE, A SYED PA Unavailable Unavailable LETTIERE, A SYED PA Unavailable Unavailable LETTIERE, A SYED PA Unavailable Unavailable LETTIERE, A SYED PA Unavailable Unavailable LETTIERE, A SYED PA Unavailable Unavailable LETTIERE, A SYED PA Unavailable Unavailable LETTIERE, A SYED PA Unavailable Unavailable LETTIERE, A SYED PA Unavailable Unavailable LETTIERE, A SYED PA Unavailable Unavailable LETTIERE, A SYED PA Unavailable Unavailable LETTIERE, A SYED PA Unavailable Unavailable LETTIERE, A SYED PA Unavailable Unavailable Nikki Washington MD Unavailable Unavailable Nikki Washington MD Unavailable Unavailable Nikki Washington MD Unavailable Unavailable Nikki Washington MD Unavailable Unavailable Nikki Washington MD Unavailable Unavailable Nikki Washington MD Unavailable Unavailable Nikki Washington MD Unavailable Unavailable PadminiNikki MD Unavailable Unavailable BonduelNikki MD Unavailable Unavailable PadminiNikki MD Unavailable Unavailable BonduelNikki MD Unavailable Unavailable BonduelNikki MD Unavailable Unavailable BonduelNikki MD Unavailable Unavailable BonduelNikki MD Unavailable Unavailable PadminiNikki MD Unavailable Unavailable PadminiNikki MD Unavailable Unavailable BonduelNikki MD Unavailable Unavailable PadminiNikki MD Unavailable Unavailable BonduelNikki MD Unavailable Unavailable PadminiNikki MD Unavailable Unavailable PadminiNikki MD Unavailable Unavailable PadminiNikki MD Unavailable Unavailable BonduelNikki MD Unavailable Unavailable BonduelNikki MD Unavailable Unavailable PadminiNikki MD Unavailable Unavailable PadminiNikki MD Unavailable Unavailable PadminiNikki MD Unavailable Unavailable PadminiNikki MD Unavailable Unavailable PadminiNikki MD Unavailable Unavailable PadminiNikki MD Unavailable Unavailable BonduelNikki MD Unavailable Unavailable BonduelNikki MD Unavailable Unavailable PadminiNikki MD Unavailable Unavailable PadminiNikki MD Unavailable Unavailable BonduelNikki MD Unavailable Unavailable PadminiNikki MD Unavailable Unavailable BonduelNikki MD Unavailable Unavailable BonduelNikki MD Unavailable Unavailable BonduelNikki MD Unavailable Unavailable BonduelNikki MD Unavailable Unavailable BonduelNikki MD Unavailable Unavailable PadminiNikki MD Unavailable Unavailable PadminiNikki MD Unavailable Unavailable BonduelNikki MD Unavailable Unavailable BonduelNikki MD Unavailable Unavailable PadminiNikki MD Unavailable Unavailable PadminiNikki MD Unavailable Unavailable PadminiNikki MD Unavailable Unavailable PadminiNikki MD Unavailable Unavailable BonduelNikki MD Unavailable Unavailable PadminiNikki MD Unavailable Unavailable BonduelNikki MD Unavailable Unavailable BonduelNikki MD Unavailable Unavailable PadminiNikki MD Unavailable Unavailable PadminiNikki MD Unavailable Unavailable PadminiNikki MD Unavailable Unavailable PadminiNikki MD Unavailable Unavailable BonduelNikki MD Unavailable Unavailable BonduelNikki MD Unavailable Unavailable BonduelNikki MD Unavailable Unavailable PadminiNikki MD Unavailable Unavailable BonduelNikki MD Unavailable Unavailable BonduelNikki MD Unavailable Unavailable Padmini, F Santiago MD Unavailable Unavailable Nikki Washington MD Unavailable Unavailable Nikki Washington MD Unavailable Unavailable Nikki Washington MD Unavailable Unavailable Nikki Washington MD Unavailable Unavailable BonduelNikki wu MD Unavailable Unavailable BonduelNikki wu MD Unavailable Unavailable PadminiNikki wu MD Unavailable Unavailable Nikki Washington MD Unavailable Unavailable Nikki Washington MD Unavailable Unavailable Nikki Washington MD Unavailable Unavailable Nikki Washington MD Unavailable Unavailable Nikki Washington MD Unavailable Unavailable Nikki Washington MD Unavailable Unavailable Nikki Washington MD Unavailable Unavailable Nikki Washington MD Unavailable Unavailable Nikki Washington MD Unavailable Unavailable Nikki Washington MD Unavailable Unavailable Nikki Washington MD Unavailable Unavailable Nikki Washington MD Unavailable Unavailable Nikki Washington MD Unavailable Unavailable Nikki Washington MD Unavailable Unavailable Nikki Washington MD Unavailable Unavailable Padilla, M Barratt PA Unavailable Unavailable Padilla, M Barratt PA Unavailable Unavailable Padilla, M Barratt PA Unavailable Unavailable Padilla, M Barratt PA Unavailable Unavailable Padilla, M Barratt PA Unavailable Unavailable Padilla, M Barratt PA Unavailable Unavailable Padilla, M Barratt PA Unavailable Unavailable Padilla, M Barratt PA Unavailable Unavailable Padilla, M Barratt PA Unavailable Unavailable Padilla, M Barratt PA Unavailable Unavailable Padilla, M Barratt PA Unavailable Unavailable Padilla, M Barratt PA Unavailable Unavailable Padilla, M Barratt PA Unavailable Unavailable Padilla, M Barratt PA Unavailable Unavailable Padilla, M Barratt PA Unavailable Unavailable Padilla, M Barratt PA Unavailable Unavailable Padilla, M Barratt PA Unavailable Unavailable Padilla, M Barratt PA Unavailable Unavailable Padilla, M Barratt PA Unavailable Unavailable Padilla, M Barratt PA Unavailable Unavailable Padilla, M Barratt PA Unavailable Unavailable Padilla, M Barratt PA Unavailable Unavailable Padilla, M Barratt PA Unavailable Unavailable Padilla, M Barratt PA Unavailable Unavailable Padilla, M Barratt PA Unavailable Unavailable Padilla, M Barratt PA Unavailable Unavailable Padilla, M Barratt PA Unavailable Unavailable Padilla, M Barratt PA Unavailable Unavailable Padilla, M Barratt PA Unavailable Unavailable ABELARDO, William Marilee ANP Unavailable Unavailable ABELARDO, J Marilee ANP Unavailable Unavailable ABELARDO, J Marilee ANP Unavailable Unavailable ABELARDO, J Marilee ANP Unavailable Unavailable ABELARDO, J Marilee ANP Unavailable Unavailable ABELARDO, J Marilee ANP Unavailable Unavailable ABELARDO, J Marilee ANP Unavailable Unavailable ABELARDO, J Marilee ANP Unavailable Unavailable ABELARDO, J Marilee ANP Unavailable Unavailable ABELARDO, J Marilee ANP Unavailable Unavailable ABELARDO, J Marilee ANP Unavailable Unavailable ABELARDO, J Marilee ANP Unavailable Unavailable ABELARDO, J Marilee ANP Unavailable Unavailable ABELARDO, J Marilee ANP Unavailable Unavailable ABELARDO, J Marilee ANP Unavailable Unavailable ABELARDO, J Marilee ANP Unavailable Unavailable ABELARDO, J Marilee ANP Unavailable Unavailable ABELARDO, J Marilee ANP Unavailable Unavailable ABELARDO, J Marilee ANP Unavailable Unavailable ABELARDO, J Marilee ANP Unavailable Unavailable ABELARDO, J Marilee ANP Unavailable Unavailable ABELARDO, J Marilee ANP Unavailable Unavailable ABELARDO, J Marilee ANP Unavailable Unavailable ABELARDO, J Marilee ANP Unavailable Unavailable ABELARDO, J Marilee ANP Unavailable Unavailable ABELARDO, J Marilee ANP Unavailable Unavailable ABELARDO, J Marilee ANP Unavailable Unavailable ABELARDO, J Marilee ANP Unavailable Unavailable ABELARDO, J Marilee ANP Unavailable Unavailable ABELARDO, J Marilee ANP Unavailable Unavailable ABELARDO, J Marilee ANP Unavailable Unavailable ABELARDO, J Marilee ANP Unavailable Unavailable ABELARDO, J Marilee ANP Unavailable Unavailable ABELARDO, J Marilee ANP Unavailable Unavailable ABELARDO, J Marilee ANP Unavailable Unavailable ABELARDO, J Marilee ANP Unavailable Unavailable ABELARDO, J Marilee ANP Unavailable Unavailable ABELARDO, J Marilee ANP Unavailable Unavailable ABELARDO, J Marilee ANP Unavailable Unavailable ABELARDO, J Marilee ANP Unavailable Unavailable ABELARDO, J Marilee ANP Unavailable Unavailable ABELARDO, J Marilee ANP Unavailable Unavailable ABELARDO, J Marilee ANP Unavailable Unavailable ABELARDO, J Marilee ANP Unavailable Unavailable ABELARDO, J Marilee ANP Unavailable Unavailable ABELARDO, J Marilee ANP Unavailable Unavailable ABELARDO, J Marilee ANP Unavailable Unavailable ABELARDO, J Marilee ANP Unavailable Unavailable ABELARDO, J Marilee ANP Unavailable Unavailable ABELARDO, J Marilee ANP Unavailable Unavailable ABELARDO, J Marilee ANP Unavailable Unavailable ABELARDO, J Marilee ANP Unavailable Unavailable ABELARDO, J Marilee ANP Unavailable Unavailable ABELARDO, J Marilee ANP Unavailable Unavailable ABELARDO, J Marilee ANP Unavailable Unavailable ABELARDO, J Marilee ANP Unavailable Unavailable ABELARDO, J Marilee ANP Unavailable Unavailable ABELARDO, J Marilee ANP Unavailable Unavailable ABELARDO, J Marilee ANP Unavailable Unavailable ABELARDO, J Marilee ANP Unavailable Unavailable ABELARDO, J Marilee ANP Unavailable Unavailable ABELARDO, J Marilee ANP Unavailable Unavailable ABELARDO, J Marilee ANP Unavailable Unavailable ABELARDO, J Marilee ANP Unavailable Unavailable Re-disclosure Warning The records that you are about to access may contain information from federally-assisted alcohol or drug abuse programs. If such information is present, then the following federally mandated warning applies: This information has been disclosed to you from records protected by federal confidentiality rules (42 CFR part 2). The federal rules prohibit you from making any further disclosure of this information unless further disclosure is expressly permitted by the written consent of the person to whom it pertains or as otherwise permitted by 42 CFR part 2. A general authorization for the release of medical or other information is NOT sufficient for this purpose. The Federal rules restrict any use of the information to criminally investigate or prosecute any alcohol or drug abuse patient.The records that you are about to access may contain highly sensitive health information, the redisclosure of which is protected by Article 27-F of the [employer] [place] Public Health law. If you continue you may have access to information: Regarding HIV / AIDS; Provided by facilities licensed or operated by the [facility] Office of Mental Health; or Provided by the [facility] Office for People With Developmental Disabilities. If such information is present, then the following [facility] mandated warning applies: This information has been disclosed to you from confidential records which are protected by state law. State law prohibits you from making any further disclosure of this information without the specific written consent of the person to whom it pertains, or as otherwise permitted by law. Any unauthorized further disclosure in violation of state law may result in a fine or long-term sentence or both. A general authorization for the release of medical or other information is NOT sufficient authorization for further disc losure. Family History Family Member Name Family Member Gender Family Member Status Date o f Status Description Data Source(s) Unknown Male Problem MEDENT ([facility]) Unknown Unknown Problem [facility] ([facility]) Unknown Unknown Problem [facility] ([facility]) Unknown Female Encounters Encounter Providers Location Date Indications Data Source(s ) [place] [address] [facility] [address] 04/08/2021 12:00:00 AM EDT eCW1 ([facility]) Outpatient Attender: Jack Davis 0 03/24/2021 02:00:00 PM EDT [facility] ([facility] ) [place] [address] [facility] [address] 03/16/2021 12:00:00 AM EDT eCW1 ([facility]) [place] [address] [facility] [address] 02/23/2021 12:00:00 AM EDT [facility]CW1 ([facility]) [place] [address] [facility] [address] 01/18/2021 12:00:00 AM EDT [facility]1 ([facility] [place] [address] [facility] [address] 12/14/2020 12:00:00 AM EDT eCW1 ([facility]) Outpatient Attender: Jack Davis 0 11/12/2020 09:40:00 AM EDT [facility] ([facility] ) [place] [address] [facility] [address] 11/11/2020 12:00:00 AM EDT eCW1 ([facility]) [place] [address] [facility] [address] 10/07/2020 12:00:00 AM EDT eCW1 ([facility]) [place] [address] [facility] [address] 09/23/2020 12:00:00 AM EDT eCW1 ([facility]) Outpatient Attender: Jack Davis 0 09/18/2020 12:00:00 PM EST [facility] ([facility] ) [place] [address] [facility] [address] 09/09/2020 12:00:00 AM EST eCW1 ([facility]) Outpatient Attender: Jack Davis 0 08/17/2020 02:00:00 PM EST [facility] ([facility] ) Outpatient Attender: Radha Davis 07/31 12:20:00 PM EST MED[facility] ([facility] ) Office Visit Attender: [facility] 10:30:00 AM EST [facility] ([facility]) Office Visit Attender: Braxton [facility] 02:15:00 PM EST [facility] ([facility]) Outpatient Attender: Marilee Davis 04/2020 12:15:00 PM EST MED[facility] ([facility] ) Outpatient Attender: Marilee Davis 02:30:00 PM EDT [facility] ([facility] ) Outpatient Attender: SYED Encinas russ 04/22/2020 03:30:00 PM EDT [facility] ([facility]) Immunizations Vaccine Date Status Description Data Source(s) COVID-19 VACCINE Moderna 10/02/2020 12:00:00 AM EDT completed [facility] Vaccine Series Complete: YESThis Data wa s Submitted to [facility] Via [employer]. COVID-19 VACCINE Moderna 09/04/2020 12:00:00 AM EST completed [facility] Vaccine Series Complete: NOThis Data was Submitted to [facility] Via [employer]. Medications Medication Brand Name Start Date Product Form Dose Route Admi nistrative Instructions Pharmacy Instructions Status Indications Reaction Description Data Source(s) 24 HR Metformin hydrochloride 750 MG Extended Release Oral T ablet METFORMIN HCL 04/17/2021 12:00:00 AM EDT tablet extended release 24 hr 60 TAKE 2 TABLETS BY MOUTH WITH SUPPER DAILY TAKE 2 TABLETS BY MOUTH WITH SUPPER DAILY SOLD: 04/19/2021 [facility] BLOOD SUGAR DIAGNOSTIC 01/09/2021 12:00:00 AM EDT strip 100 TEST THREE TIMES A WEEK TEST THREE TIMES A WEEK SOLD: 01/17/2021 [facility] BLOOD SUGAR DIAGNOSTIC 01/09/2021 12:00:00 AM EDT strip 100 TEST THREE TIMES A WEEK TEST THREE TIMES A WEEK SOLD: 04/16/2021 [facility] BLOOD SUGAR DIAGNOSTIC 12/02/2020 12:00:00 AM EDT strip 100 TEST TWO TIMES A DAY FOR 3 TIMES A WEEK TEST TWO TIMES A DAY FOR 3 TIMES A WEEK SOLD: 12/07/2020 [facility] BLOOD SUGAR DIAGNOSTIC 12/02/2020 12:00:00 AM EDT strip 100 TEST TWO TIMES A DAY FOR 3 TIMES A WEEK TEST TWO TIMES A DAY FOR 3 TIMES A WEEK SOLD: 03/02/2021 [facility] 3 mg/0.5 mL 11/12/2020 12:00:00 AM EDT pen injector 2 INJECT CONTENTS OF 1 PEN SUBCUTANEOUSLY ONCE A WEEK INJECT CONTENTS OF 1 PEN SUBCUTANEOUSLY ONCE A WEEK SOLD: 12/08/2020 [facility] 3 mg/0.5 mL 11/12/2020 12:00:00 AM EDT pen injector 2 INJECT CONTENTS OF 1 PEN SUBCUTANEOUSLY ONCE A WEEK INJECT CONTENTS OF 1 PEN SUBCUTANEOUSLY ONCE A WEEK SOLD: 03/02/2021 [facility] 3 mg/0.5 mL 11/12/2020 12:00:00 AM EDT pen injector 2 INJECT CONTENTS OF 1 PEN SUBCUTANEOUSLY ONCE A WEEK INJECT CONTENTS OF 1 PEN SUBCUTANEOUSLY ONCE A WEEK SOLD: 01/31/2021 [facility] 3 mg/0.5 mL 11/12/2020 12:00:00 AM EDT pen injector 2 INJECT CONTENTS OF 1 PEN SUBCUTANEOUSLY ONCE A WEEK INJECT CONTENTS OF 1 PEN SUBCUTANEOUSLY ONCE A WEEK SOLD: 03/29/2021 [facility] 3 mg/0.5 mL 11/12/2020 12:00:00 AM EDT pen injector 2 INJECT CONTENTS OF 1 PEN SUBCUTANEOUSLY ONCE A WEEK INJECT CONTENTS OF 1 PEN SUBCUTANEOUSLY ONCE A WEEK SOLD: 01/05/2021 [facility] 3 mg/0.5 mL 11/12/2020 12:00:00 AM EDT pen injector 2 INJECT CONTENTS OF 1 PEN SUBCUTANEOUSLY ONCE A WEEK INJECT CONTENTS OF 1 PEN SUBCUTANEOUSLY ONCE A WEEK SOLD: 11/14/2020 [facility] Dennis Collins 11/12/2020 12:00:00 AM EDT SUBCUTANEOUS active [facility] ([facility]) 0.5 ML dulaglutide 3 MG/ML Auto-Injector [Trulicity] Jeramy ty 11/12/2020 12:00:00 AM EDT completed [facility] ([facility]) 200 unit/mL (3 mL) 11/02/2020 12:00:00 AM EDT insulin pen 27 INJECT 4 UNITS UNDER THE SKIN DAILY AND INCREASE BY 2 UNITS EVERY 3 DAYS INJECT 4 UNITS UNDER THE SKIN DAILY AND INCREASE BY 2 UNITS EVERY 3 DAYS SOLD: 11/02/2020 [facility] 1.5 mg/0.5 mL 11/02/2020 12:00:00 AM EDT pen injector 2 INJECT CONTENTS OF ONE PEN SUBCUTANEOUSLY EVERY WEEK INJECT CONTENTS OF ONE PEN SUBCUTANEOUSL Y EVERY WEEK SOLD: 11/08/2020 [facility] 200 unit/mL (3 mL) 11/02/2020 12:00:00 AM EDT insulin pen 27 INJECT 4 UNITS UNDER THE SKIN DAILY AND INCREASE BY 2 UNITS EVERY 3 DAYS INJECT 4 UNITS UNDER THE SKIN DAILY AND INCREASE BY 2 UNITS EVERY 3 DAYS SOLD: 01/27/2021 [facility] 1.5 mg/0.5 mL 10/03/2020 12:00:00 AM EDT pen injector 2 INJECT CONTENTS OF ONE PEN SUBCUTANEOUSLY EVERY WEEK INJECT CONTENTS OF ONE PEN SUBCUTANEOUSL Y EVERY WEEK SOLD: 10/03/2020 [facility] 0.25 mg 09/30/2020 12:00:00 AM EDT tablet 3 TAKE ONE TABLET BY MOUTH AT BEDTIME AND ONE TABLET BY MOUTH ONE HOUR PRIOR TO DENTAL PROCEDURE MAXIMUM DAILY DOSE = TWO TABLETS TAKE ONE TABLET BY MOUTH AT BEDTIME AND ONE TABLET BY MOUTH ONE HOUR PRIOR TO DENTAL PROCEDURE MAXIMUM DAILY DOSE = TWO TABLETS SOLD: 09/30/2020 [facility] 30 gauge 09/19/2020 12:00:00 AM EST misc 100 TEST TWO TIMES A DAY AND NEEDED TEST TWO TIMES A DAY AND NEEDED SOLD: 02/12/2021 [facility] 30 gauge 09/19/2020 12:00:00 AM EST misc 100 TEST TWO TIMES A DAY AND NEEDED TEST TWO TIMES A DAY AND NEEDED SOLD: 12/07/2020 [facility] 30 gauge 09/19/2020 12:00:00 AM EST misc 100 TEST TWO TIMES A DAY AND NEEDED TEST TWO TIMES A DAY AND NEEDED SOLD: 11/02/2020 [facility] 30 gauge 09/19/2020 12:00:00 AM EST misc 100 TEST TWO TIMES A DAY AND NEEDED TEST TWO TIMES A DAY AND NEEDED SOLD: 03/17/2021 [facility] 30 gauge 09/19/2020 12:00:00 AM EST misc 100 TEST TWO TIMES A DAY AND NEEDED TEST TWO TIMES A DAY AND NEEDED SOLD: 01/05/2021 [facility] 30 gauge 09/19/2020 12:00:00 AM EST misc 100 TEST TWO TIMES A DAY AND NEEDED TEST TWO TIMES A DAY AND NEEDED SOLD: 09/21/2020 [facility] 30 gauge 09/19/2020 12:00:00 AM EST misc 100 TEST TWO TIMES A DAY AND NEEDED TEST TWO TIMES A DAY AND NEEDED SOLD: 04/16/2021 [facility] Onetouch Delica Plus Lancets Fine 30G 09/18/2020 12:00:00 AM EST active [facility] ([facility]) 1.5 mg/0.5 mL 09/01/2020 12:00:00 AM EST pen injector 2 INJECT CONTENTS OF ONE PEN SUBCUTANEOUSLY EVERY WEEK INJECT CONTENTS OF ONE PEN SUBCUTANEOUSL Y EVERY WEEK SOLD: 09/01/2020 [facility] BLOOD SUGAR DIAGNOSTIC 08/18/2020 12:00:00 AM EST strip 50 TEST THREE TIMES A WEEK TEST THREE TIMES A WEEK SOLD: 10/14/2020 [facility] BLOOD SUGAR DIAGNOSTIC 08/18/2020 12:00:00 AM EST strip 50 TEST THREE TIMES A WEEK TEST THREE TIMES A WEEK SOLD: 08/19/2020 [facility] 29 gauge x 1/2" 08/18/2020 12:00:00 AM EST needle 100 USE EVERY DAY USE EVERY DAY SOLD: 10/16/2020 [facility] 29 gauge x 1/2" 08/18/2020 12:00:00 AM EST needle 100 USE EVERY DAY USE EVERY DAY SOLD: 08/19/2020 [facility] BLOOD SUGAR DIAGNOSTIC 08/18/2020 12:00:00 AM EST strip 50 TEST THREE TIMES A WEEK TEST THREE TIMES A WEEK SOLD: 09/09/2020 [facility] BLOOD SUGAR DIAGNOSTIC 08/18/2020 12:00:00 AM EST strip 50 TEST THREE TIMES A WEEK TEST THREE TIMES A WEEK SOLD: 11/14/2020 [facility] 29 gauge x 1/2" 08/18/2020 12:00:00 AM EST needle 100 USE EVERY DAY USE EVERY DAY SOLD: 09/18/2020 [facility] On[facility] Ultra 08/17/2020 12:00:00 AM EST act marko MED[facility] ([facility]) 10 mg 08/13/2020 12:00:00 AM EST tablet 30 TAKE ONE TABLET BY MOUTH EVERY DAY TAKE ONE TABLET BY MOUTH EVERY DAY SOLD: 04/16/2021 [facility] Rosuvastatin calcium 10 MG Oral Tablet ROSUVASTATIN CALCIUM 08/13/2020 12:00:00 AM EST tablet 30 TAKE ONE TABLET BY MOUTH PALLAVI RY DAY TAKE ONE TABLET BY MOUTH EVERY DAY SOLD: 08/15/2020 [facility] Rosuvastatin calcium 10 MG Oral Tablet ROSUVASTATIN CALCIUM 08/13/2020 12:00:00 AM EST tablet 30 TAKE ONE TABLET BY MOUTH PALLAVI RY DAY TAKE ONE TABLET BY MOUTH EVERY DAY SOLD: 10/16/2020 [facility] Rosuvastatin calcium 10 MG Oral Tablet ROSUVASTATIN CALCIUM 08/13/2020 12:00:00 AM EST tablet 30 TAKE ONE TABLET BY MOUTH PALLAVI RY DAY TAKE ONE TABLET BY MOUTH EVERY DAY SOLD: 12/14/2020 [facility] Rosuvastatin calcium 10 MG Oral Tablet ROSUVASTATIN CALCIUM 08/13/2020 12:00:00 AM EST tablet 30 TAKE ONE TABLET BY MOUTH PALLAVI RY DAY TAKE ONE TABLET BY MOUTH EVERY DAY SOLD: 02/12/2021 [facility] Rosuvastatin calcium 10 MG Oral Tablet ROSUVASTATIN CALCIUM 08/13/2020 12:00:00 AM EST tablet 30 TAKE ONE TABLET BY MOUTH PALLAVI RY DAY TAKE ONE TABLET BY MOUTH EVERY DAY SOLD: 09/18/2020 [facility] Rosuvastatin calcium 10 MG Oral Tablet ROSUVASTATIN CALCIUM 08/13/2020 12:00:00 AM EST tablet 30 TAKE ONE TABLET BY MOUTH PALLAVI RY DAY TAKE ONE TABLET BY MOUTH EVERY DAY SOLD: 03/17/2021 [facility] Rosuvastatin calcium 10 MG Oral Tablet ROSUVASTATIN CALCIUM 08/13/2020 12:00:00 AM EST tablet 30 TAKE ONE TABLET BY MOUTH PALLAVI RY DAY TAKE ONE TABLET BY MOUTH EVERY DAY SOLD: 01/11/2021 [facility] Rosuvastatin calcium 10 MG Oral Tablet ROSUVASTATIN CALCIUM 08/13/2020 12:00:00 AM EST tablet 30 TAKE ONE TABLET BY MOUTH PALLAVI DAY TAKE ONE TABLET BY MOUTH EVERY DAY SOLD: 11/14/2020 [facility] 32 gauge x 1/4" 08/06/2020 12:00:00 AM EST needle 30 USE ONCE DAILY WITH TRIESEBA USE ONCE DAILY WITH TRIESEBA SOLD: 10/14/2020 [facility] 32 gauge x 1/4" 08/06/2020 12:00:00 AM EST needle 30 USE ONCE DAILY WITH TRIESEBA USE ONCE DAILY WITH TRIESEBA SOLD: 08/06/2020 [facility] 32 gauge x 1/4" 08/06/2020 12:00:00 AM EST needle 30 USE ONCE DAILY WITH TRIESEBA USE ONCE DAILY WITH TRIESEBA SOLD: 02/13/2021 [facility] 1.5 mg/0.5 mL 08/06/2020 12:00:00 AM EST pen injector 2 INJECT CONTENTS OF ONE PEN SUBCUTANEOUSLY EVERY WEEK INJECT CONTENTS OF ONE PEN SUBCUTANEOUSL Y EVERY WEEK SOLD: 08/06/2020 [facility] 32 gauge x 1/4" 08/06/2020 12:00:00 AM EST needle 30 USE ONCE DAILY WITH TRIESEBA USE ONCE DAILY WITH TRIESEBA SOLD: 04/16/2021 [facility] 32 gauge x 1/4" 08/06/2020 12:00:00 AM EST needle 30 USE ONCE DAILY WITH TRIESEBA USE ONCE DAILY WITH TRIESEBA SOLD: 09/07/2020 [facility] 32 gauge x 1/4" 08/06/2020 12:00:00 AM EST needle 30 USE ONCE DAILY WITH TRIESEBA USE ONCE DAILY WITH TRIESEBA SOLD: 03/17/2021 [facility] Novofine 08/06/2020 12:00:00 AM EST active [facility] ([facility]) 150 mg 07/31/2020 12:00:00 AM EST tablet 5 TAKE ONE TABLET BY MOUTH MAY REPEAT EVERY 72 HOUR FOR THREE DOSES, THEN 1 EVERY WEEKLY FOR 12 WEEKS TAKE ONE TABLET BY MOUTH MAY REPEAT EVERY 72 HOUR FOR THREE DOSES, THEN 1 EVERY WEEKLY FOR 12 WEEKS SOLD: 08/15/2020 [facility] Tresiba Flextouch Tresiba Flextouch 07/31/2020 12:00:00 AM EST active [facility] 150 mg 07/31/2020 12:00:00 AM EST tablet 5 TAKE ONE TABLET BY MOUTH MAY REPEAT EVERY 72 HOUR FOR THREE DOSES, THEN 1 EVERY WEEKLY FOR 12 WEEKS TAKE ONE TABLET BY MOUTH MAY REPEAT EVERY 72 HOUR FOR THREE DOSES, THEN 1 EVERY WEEKLY FOR 12 WEEKS SOLD: 08/18/2020 [facility] 1.5 mg/0.5 mL 06/25/2020 12:00:00 AM EST pen injector 2 INJECT CONTENTS OF ONE PEN SUBCUTANEOUSLY EVERY WEEK INJECT CONTENTS OF ONE PEN SUBCUTANEOUSL Y EVERY WEEK SOLD: 06/26/2020 [facility] 2 ML Sodium Hyaluronate 10 MG/ML Prefilled Syringe [Euflexxa ] Euflexxa 06/22/2020 12:00:00 AM EST active [facility] ([facility]) Fluconazole 150 MG Oral Tablet [Diflucan] Diflucan 06/03/2020 1 2:00:00 AM EST ORAL active [facility] ([facility]) 150 mg 06/03/2020 12:00:00 AM EST tablet 2 TAKE 1 TABLET BY MOUTH ONCE AND REPEAT IN 3 DAYS TAKE 1 TABLET BY MOUTH ONCE AND REPEAT IN 3 DAYS SOLD: 06/26/2020 [facility] 150 mg 06/03/2020 12:00:00 AM EST tablet 2 TAKE 1 TABLET BY MOUTH ONCE AND REPEAT IN 3 DAYS TAKE 1 TABLET BY MOUTH ONCE AND REPEAT IN 3 DAYS SOLD: 06/09/2020 [facility] 20 mg 05/19/2020 12:00:00 AM EST tablet 5 TAKE ONE TABLET BY MOUTH EVERY DAY FOR 5 DAYS TAKE ONE TABLET BY MOUTH EVERY DAY FOR 5 DAYS SOLD: 05/19/2020 [facility] Prednisone 20 MG Oral Tablet Prednisone 05/19/2020 12:00:00 AM EST ORAL completed [facility] ([facility]) 500 mg 05/07/2020 12:00:00 AM EDT tablet 10 TAKE ONE TABLET BY MOUTH EVERY DAY FOR 10 DAYS TAKE ONE TABLET BY MOUTH EVERY DAY FOR 10 DAYS SOLD: 020 [facility] Levofloxacin 500 MG Oral Tablet Levofloxacin 05/07/2020 12:00:00 AM E DT ORAL completed [facility] ([facility]) Ibuprofen 800 MG Oral Tablet Ibuprofen 04/22/2020 12:00:00 AM EDT active [facility] ([facility]) Ciprofloxacin 3 MG/ML / Dexamethasone 1 MG/ML Otic Alannah pension [Ciprodex] Ciprodex 04/22/2020 12:00:00 AM EDT active [facility] ([facility]) 0.3-0.1 % 04/22/2020 12:00:00 AM EDT drops,suspension 7 INSTILL FOUR DROPS INTO AFFECTED EAR TWO TIMES A DAY FOR 7 DAYS INSTILL FOUR DROPS INTO AFFECTED EAR TWO TIMES A DAY FOR 7 DAYS SOLD: 04/22/2020 [facility] 800 mg 04/22/2020 12:00:00 AM EDT tablet 50 TAKE ONE TABLET BY MOUTH EVERY 6 TO 8 HOURS WITH FOOD TAKE ONE TABLET BY MOUTH EVERY 6 TO 8 HOURS WITH FOOD SOLD: 05/18/2020 [facility] 800 mg 04/22/2020 12:00:00 AM EDT tablet 50 TAKE ONE TABLET BY MOUTH EVERY 6 TO 8 HOURS WITH FOOD TAKE ONE TABLET BY MOUTH EVERY 6 TO 8 HOURS WITH FOOD SOLD: 04/22/2020 [facility] 1.5 mg/0.5 mL 04/14/2020 12:00:00 AM EDT pen injector 2 INJECT 1 SUBCUTANEOUSLY EVERY WEEK INJECT 1 SUBCUTANEOUSLY EVERY WEEK SOLD: 05/11/2020 [facility] 1.5 mg/0.5 mL 04/14/2020 12:00:00 AM EDT pen injector 2 INJECT 1 SUBCUTANEOUSLY EVERY WEEK INJECT 1 SUBCUTANEOUSLY EVERY WEEK SOLD: 04/15/2020 [facility] 1.5 mg/0.5 mL 04/14/2020 12:00:00 AM EDT pen injector 2 INJECT 1 SUBCUTANEOUSLY EVERY WEEK INJECT 1 SUBCUTANEOUSLY EVERY WEEK SOLD: 06/09/2020 [facility] 24 HR Metformin hydrochloride 750 MG Extended Release Oral T ablet METFORMIN HCL 04/09/2020 12:00:00 AM EDT tablet extended release 24 hr 60 TAKE 2 TABLETS BY MOUTH WITH SUPPER DAILY TAKE 2 TABLETS BY MOUTH WITH SUPPER DAILY SOLD: 06/12/2020 [facility] 24 HR Metformin hydrochloride 750 MG Extended Release Oral T ablet METFORMIN HCL 04/09/2020 12:00:00 AM EDT tablet extended release 24 hr 60 TAKE 2 TABLETS BY MOUTH WITH SUPPER DAILY TAKE 2 TABLETS BY MOUTH WITH SUPPER DAILY SOLD: 08/13/2020 [facility] 24 HR Metformin hydrochloride 750 MG Extended Release Oral T ablet METFORMIN HCL 04/09/2020 12:00:00 AM EDT tablet extended release 24 hr 60 TAKE 2 TABLETS BY MOUTH WITH SUPPER DAILY TAKE 2 TABLETS BY MOUTH WITH SUPPER DAILY SOLD: 10/15/2020 [facility] 24 HR Metformin hydrochloride 750 MG Extended Release Oral T ablet METFORMIN HCL 04/09/2020 12:00:00 AM EDT tablet extended release 24 hr 60 TAKE 2 TABLETS BY MOUTH WITH SUPPER DAILY TAKE 2 TABLETS BY MOUTH WITH SUPPER DAILY SOLD: 02/13/2021 [facility] 24 HR Metformin hydrochloride 750 MG Extended Release Oral T ablet METFORMIN HCL 04/09/2020 12:00:00 AM EDT tablet extended release 24 hr 60 TAKE 2 TABLETS BY MOUTH WITH SUPPER DAILY TAKE 2 TABLETS BY MOUTH WITH SUPPER DAILY SOLD: 12/14/2020 [facility] 24 HR Metformin hydrochloride 750 MG Extended Release Oral T ablet METFORMIN HCL 04/09/2020 12:00:00 AM EDT tablet extended release 24 hr 60 TAKE 2 TABLETS BY MOUTH WITH SUPPER DAILY TAKE 2 TABLETS BY MOUTH WITH SUPPER DAILY SOLD: 05/15/2020 [facility] 24 HR Metformin hydrochloride 750 MG Extended Release Oral T ablet METFORMIN HCL 04/09/2020 12:00:00 AM EDT tablet extended release 24 hr 60 TAKE 2 TABLETS BY MOUTH WITH SUPPER DAILY TAKE 2 TABLETS BY MOUTH WITH SUPPER DAILY SOLD: 09/10/2020 [facility] 24 HR Metformin hydrochloride 750 MG Extended Release Oral T ablet METFORMIN HCL 04/09/2020 12:00:00 AM EDT tablet extended release 24 hr 60 TAKE 2 TABLETS BY MOUTH WITH SUPPER DAILY TAKE 2 TABLETS BY MOUTH WITH SUPPER DAILY SOLD: 07/16/2020 [facility] 24 HR Metformin hydrochloride 750 MG Extended Release Oral T ablet METFORMIN HCL 04/09/2020 12:00:00 AM EDT tablet extended release 24 hr 60 TAKE 2 TABLETS BY MOUTH WITH SUPPER DAILY TAKE 2 TABLETS BY MOUTH WITH SUPPER DAILY SOLD: 01/17/2021 [facility] 24 HR Metformin hydrochloride 750 MG Extended Release Oral T ablet METFORMIN HCL 04/09/2020 12:00:00 AM EDT tablet extended release 24 hr 60 TAKE 2 TABLETS BY MOUTH WITH SUPPER DAILY TAKE 2 TABLETS BY MOUTH WITH SUPPER DAILY SOLD: 11/14/2020 [facility] 24 HR Metformin hydrochloride 750 MG Extended Release Oral T ablet METFORMIN HCL 04/09/2020 12:00:00 AM EDT tablet extended release 24 hr 60 TAKE 2 TABLETS BY MOUTH WITH SUPPER DAILY TAKE 2 TABLETS BY MOUTH WITH SUPPER DAILY SOLD: 03/17/2021 [facility] 750 mg 04/09/2020 12:00:00 AM EDT tablet extended release 24 hr 60 TAKE 2 TABLETS BY MOUTH WITH SUPPER DAILY TAKE 2 TABLETS BY MOUTH WITH SUPPER DAILY SOLD: 04/13/2020 [facility] 1.5 mg/0.5 mL 01/22/2020 12:00:00 AM EDT pen injector 2 INJECT 1 SUBCUTANEOUSLY EVERY WEEK INJECT 1 SUBCUTANEOUSLY EVERY WEEK SOLD: 03/19/2020 [facility] 10 mg 08/20/2019 12:00:00 AM EST tablet 30 TAKE ONE TABLET BY MOUTH EVERY DAY TAKE ONE TABLET BY MOUTH EVERY DAY SOLD: 03/12/2020 [facility] 10 mg 08/20/2019 12:00:00 AM EST tablet 30 TAKE ONE TABLET BY MOUTH EVERY DAY TAKE ONE TABLET BY MOUTH EVERY DAY SOLD: 06/09/2020 [facility] Rosuvastatin calcium 10 MG Oral Tablet ROSUVASTATIN CALCIUM 08/20/2019 12:00:00 AM EST tablet 30 TAKE ONE TABLET BY MOUTH PALLAVI TAKE ONE TABLET BY MOUTH EVERY DAY SOLD: 07/16/2020 [facility] 10 mg 08/20/2019 12:00:00 AM EST tablet 30 TAKE ONE TABLET BY MOUTH EVERY DAY TAKE ONE TABLET BY MOUTH EVERY DAY SOLD: 04/13/2020 [facility] 10 mg 08/20/2019 12:00:00 AM EST tablet 30 TAKE ONE TABLET BY MOUTH EVERY DAY TAKE ONE TABLET BY MOUTH EVERY DAY SOLD: 05/11/2020 [facility] BLOOD SUGAR DIAGNOSTIC 06/22/2019 12:00:00 AM EST strip 50 DIRECTED TWO TIMES A DAY TO CHECK SUGAR DIRECTED TWO TIMES A DAY TO CHECK SUGAR SOLD: 04/08/2020 [facility] BLOOD SUGAR DIAGNOSTIC 06/22/2019 12:00:00 AM EST strip 50 DIRECTED TWO TIMES A DAY TO CHECK SUGAR DIRECTED TWO TIMES A DAY TO CHECK SUGAR SOLD: 03/12/2020 [facility] 750 mg 04/06/2019 12:00:00 AM EDT tablet extended release 24 hr 60 TAKE 2 TABLETS BY MOUTH WITH SUPPER DAILY TAKE 2 TABLETS BY MOUTH WITH SUPPER DAILY SOLD: 03/12/2020 [facility] Insurance Providers Payer name Policy type / Coverage type Policy ID Covered alliance party ID Covered alliance party's relationship to devi Policy Devi Plan Information Lifetime Benefit ([employer]) Commercial [id number] Family Dependent [id number] Lifetime Benefit ([employer]) Commercial [id number] Family Depende nt Lifetime Benefit Solution [facility] Part B [id number] Family Dependent 0 [id number] [place] 306/806 [id number] [place] PPO 302/307 [id number] [id number] BS [place] [employer] Commercial [id number] Family Dependent 802 [place] [employer] Commercial [id number] Family Dependent [id number] BS [place] [employer] [id number] Family Dependent V [id number] BS [place] Commercial [id number] Family Dependent V [id number] BS [place] Commercial [id number] Family Dependent V [id number] BS [place] Commercial [id number] Family Dependent V [id number] BS [place] Commercial [id number] Family Dependent V [id number] BS [place] Commercial [id number] Family Dependent V [id number] BS [place] [employer] [id number] Family Dependent V [id number] BS [place] Commercial [id number] Family Dependent V [id number] [place] [employer] B [id number] P [id number] Lifetime Benefit ([employer]) Commercial [id number] Family Dependent [id number] [employer] Commercial [id number] Family Dependent [id number] [employer] Commercial [id number] Family Dependent [id number] Lifetime Benefit ([employer]) Commercial [id number] Family Depende nt BCBS/[place] Commercial [id number] Family Dependent BS Of [place] Commercial [id number] Family Dependent [employer] MEDICAL CLAIMS [id number] [id number] [employer] P [id number] P [id number] LIF[employer]IME BENEFIT SOLUTIONS [id number] [place] PPO 302/307 [id number] Problems, Conditions, and Diagnoses Code Display Name Description Problem Type Effective Dates Data Source(s) E11.65 Hyperglycemia due to type 2 diabetes cullen litus Diabetes mellitus with hyperglycemia Problem 02/23/2021 12:00:00 AM EDT eCW1 ([facility]) Surgeries/Procedures Procedure Description Date Indications Data Source(s) OFFICE OUTPATIENT VISIT 25 MINUTES 03/24/2021 12:00:00 AM EDT [facility] ([facility]) OFFICE OUTPATIENT VISIT 15 MINUTES 11/12/2020 12:00:00 AM EDT [facility] ([facility]) ARTHROCENTESIS ASPIR&/INJECTION MAJOR JT/BURSA 021 12:00:00 AM EST [facility] ([facility]) ARTHROCENTESIS ASPIR&/INJECTION MAJOR JT/BURSA 021 12:00:00 AM EST [facility] ([facility]) ARTHROCENTESIS ASPIR&/INJECTION MAJOR JT/BURSA 020 12:00:00 AM EST [facility] ([facility]) Mammogram 05/13/2020 12:00:00 AM EST M [facility]ENT ([facility]) Remove Impact Cerumen Irrigati 04/22/2020 12:00:00 AM EDT [facility] ([facility]) Results ID Date Data Source [id number] 03/23/2021 08:51:00 AM EDT [facility] ([facility]) Name Value Range Interpretation Code Description Data Lidia rce(s) Supporting Document(s) Microalbumin Urine 10.3 mg/L 1.3-20.0 [facility] ([facility]) Urine Creatinine 142.8 mg/dL 30.0-125.0 [facility] ([facility]) Microalb/Creat Ratio 7.2 ug/mg 0.0-30.0 [facility] ([facility]) ID Date Data Source [id number] 03/23/2021 08:51:00 AM EDT [facility] ([facility]) Name Value Range Interpretation Code Description Data Lidia rce(s) Supporting Document(s) Cholesterol [Mass/volume] in Serum or Plasma 201 mg/dL 131-200 [facility] ([facility]) Cholesterol in LDL [Mass/volume] in Serum or Plasma by calcu lation 104 CALC 50-159 [facility] ([facility]) Cholesterol in HDL [Mass/volume] in Serum or Plasma 52 mg/dL 35-60 [facility] ([facility]) Triglyceride [Mass/volume] in Serum or Plasma 227 mg/dL 30-150 [facility] ([facility]) ID Date Data Source [id number] 03/23/2021 08:51:00 AM EDT [facility] ([facility]) Name Value Range Interpretation Code Description Data Lidia rce(s) Supporting Document(s) Urea nitrogen [Mass/volume] in Serum or Plasma 13 mg/dL 7-18 [facility] ([facility]) Glucose [Mass/volume] in Serum or Plasma 108 mg/dL 74-99 [facility] ([facility]) 100-125 mg/dL PRE-DIABETES/FASTING >126 mg/dL DIABETES/FASTING Sodium [Moles/volume] in Serum or Plasma 142 meq/L 136-145 [facility] ([facility]) Creatinine 0.9 mg/dL 0.6-1.3 [facility] ([facility]) Potassium [Moles/volume] in Serum or Plasma 4.3 meq/L 3.5-5.1 [facility] ([facility]) Calcium [Mass/volume] in Serum or Plasma 8.7 mg/dL 8.5-10.1 [facility] Chloride [Moles/volume] in Serum or Plasma 105 meq/L 98-107 [facility] ([facility]) Carbon dioxide, total [Moles/volume] in Serum or Plasma 32 meq/L 21 -32 [facility] ([facility]) Alkaline phosphatase isoenzyme [Units/volume] in Serum or Pl asma 87 mg/dL 46-116 [facility] Total Bilirubin 0.6 mg/dL 0.2-1.0 [facility] ([facility]) Aspartate aminotransferase [Enzymatic activity/volume] in Serum or Plasma 16 U/L 15-37 [facility] ([facility] ) Alanine aminotransferase [Enzymatic activity/volume] in Seru m or Plasma 17 U/L 12-78 [facility] ([facility]) Albumin [Mass/volume] in Serum or Plasma 3.4 g/dL 3.4-5.0 [facility] ([facility]) Proteinase 3 Ab [Units/volume] in Serum 6.6 g/dL 6.4-8.2 [facility] ([facility]) A/G Ratio 1.06 CALC 1.00-1.90 [facility] ([facility]) Glomerular filtration rate/1.73 sq M pre dicted among non-blacks [Volume Rate/Area] in Serum or Plasma by Creatinine-based formula (MDRD) Laboratory test result [facility] Glomerular filtration rate/1.73 sq M pre dicted among blacks [Volume Rate/Area] in Serum or Plasma by Creatinine-based formula (MDRD) Laboratory test result [facility]) <content>CHRONIC KIDNEY DISEASE STAGING PER NKF</content>
<content></content>
<content>STAGE I & II GFR >= 60 NORMAL TO MILDLY DECREASED</content>
<content>STAGE III GFR 30-59 MODERATELY DECREASED</content>
<content>STAGE IV GFR 15-29 SEVERELY DECREASED</content>
<content>STAGE V GFR <15 VERY LITTLE GFR LEFT</content>
<content>ESRD GFR <15 ON CHEMICAL INSPECTOR</content>
<content></content> ID Date Data Source [id number] 03/23/2021 08:51:00 AM EDT [facility] ([facility]) Name Value Range Interpretation Code Description Data Lidia rce(s) Supporting Document(s) Glucose mean value [Mass/volume] in Blood Estimated fr om glycated hemoglobin 120 mg/dL 60-110 [facility] ([facility] ) Hemoglobin A1c/Hemoglobin.total in Blood 5.8 % [facility] ([facility]) Lab Result Notes: Pre-Diabetes 5.7 - 6.4 % Diabetes = or > 6.5% ID Date Data Source [id number] 11/11/2020 09:15:00 AM EDT [facility]) Name Value Range Interpretation Code Description Data Lidia rce(s) Supporting Document(s) Cobalamin (Vitamin B12) [Mass/volume] in Serum or Plasma Lab oratory test result [id number] [facility] ([facility]) VITAMIN B12 NORMAL RANGE NORMAL 247 - 911 PG/ML INDETERMINATE 211 - 246 PG/ML DEFICIENT LESS THAN 211 PG/ML ID Date Data Source [id number] 11/11/2020 09:15:00 AM EDT [facility] ([facility]) Name Value Range Interpretation Code Description Data Lidia rce(s) Supporting Document(s) Thyrotropin [Units/volume] in Serum or Plasma by Detec tion limit <= 0.05 mIU/L 1.42 uIU/mL 0.36-3.74 [facility] ([facility] ) ID Date Data Source [id number] 11/11/2020 09:14:00 AM EDT [facility] ([facility]) Name Value Range Interpretation Code Description Data Lidia rce(s) Supporting Document(s) Glucose [Mass/volume] in Serum or Plasma 161 mg/dL 74-99 [facility] ([facility]) 100-125 mg/dL PRE-DIABETES/FASTING >126 mg/dL DIABETES/FASTING Creatinine 0.8 mg/dL 0.6-1.3 [facility] ([facility]) Sodium [Moles/volume] in Serum or Plasma 139 meq/L 136-145 [facility] ([facility]) Urea nitrogen [Mass/volume] in Serum or Plasma 14 mg/dL 7-18 [facility] ([facility]) Chloride [Moles/volume] in Serum or Plasma 102 meq/L 98-107 [facility] ([facility]) Potassium [Moles/volume] in Serum or Plasma 4.3 meq/L 3.5-5.1 [facility] ([facility]) Glomerular filtration rate/1.73 sq M pre dicted among non-blacks [Volume Rate/Area] in Serum or Plasma by Creatinine-based formula (MDRD) Laboratory test result [facility] ([facility] ) Carbon dioxide, total [Moles/volume] in Serum or Plasma 29 meq/L 21 -32 [facility] ([facility]) Calcium [Mass/volume] in Serum or Plasma 8.5 mg/dL 8.5-10.1 [facility] ([facility]) Glomerular filtration rate/1.73 sq M pre dicted among blacks [Volume Rate/Area] in Serum or Plasma by Creatinine-based formula (MDRD) Laboratory test result [facility] ([facility]) <content>CHRONIC KIDNEY DISEASE STAGING PER NKF</content>
<content></content>
<content>STAGE I & II GFR >= 60 NORMAL TO MILDLY DECREASED</content>
<content>STAGE III GFR 30-59 MODERATELY DECREASED</content>
<content>STAGE IV GFR 15-29 SEVERELY DECREASED</content>
<content>STAGE V GFR <15 VERY LITTLE GFR LEFT</content>
<content>ESRD GFR <15 ON CHEMICAL INSPECTOR</content>
<content></content> ID Date Data Source [id number] 11/11/2020 09:14:00 AM EDT [facility] ([facility]) Name Value Range Interpretation Code Description Data Lidia rce(s) Supporting Document(s) Hemoglobin A1c/Hemoglobin.total in Blood 6.1 % [facility] Lab Result Notes: Pre-Diabetes 5.7 - 6.4 % Diabetes = or > 6.5% Glucose mean value [Mass/volume] in Blood Estimated fr om glycated hemoglobin 128 mg/dL 60-110 [facility] ID Date Data Source [id number] 11/11/2020 09:14:00 AM EDT [facility] ([facility]) Name Value Range Interpretation Code Description Data Lidia rce(s) Supporting Document(s) Hemoglobin A1c/Hemoglobin.total in Blood Laboratory [facility] ID Date Data Source [id number] 07/31/2020 02:26:00 PM EST [facility] ([facility] Name Value Range Interpretation Code Description Data Lidia rce(s) Supporting Document(s) Microalbumin Urine 8.5 mg/L 1.3-20.0 [facility] ([facility]) Urine Creatinine 36.8 mg/dL 30.0-125.0 [facility]) Microalb/Creat Ratio 23.1 ug/mg 0.0-30.0 [facility] ( [facility]) ID Date Data Source [id number] 07/30/2020 08:48:00 AM EST [facility] ([facility]) Name Value Range Interpretation Code Description Data Lidia rce(s) Supporting Document(s) Hemoglobin A1c/Hemoglobin.total in Blood Laboratory test result [facility] ([facility]) ID Date Data Source [id number] 07/30/2020 08:47:00 AM EST [facility] ([facility]) Name Value Range Interpretation Code Description Data Lidia rce(s) Supporting Document(s) Triglyceride [Mass/volume] in Serum or Plasma 331 mg/dL 30-150 [facility] ([facility]) Cholesterol [Mass/volume] in Serum or Plasma 253 mg/dL 131-200 [facility] ([facility]) Cholesterol in LDL [Mass/volume] in Serum or Plasma by calcu lation 128 CALC 50-159 [facility] ([facility]) Cholesterol in HDL [Mass/volume] in Serum or Plasma 59 mg/dL 35-60 [facility] ([facility]) ID Date Data Source [id number] 07/30/2020 08:47:00 AM EST [facility] ([facility]) Name Value Range Interpretation Code Description Data Lidia rce(s) Supporting Document(s) Urea nitrogen [Mass/volume] in Serum or Plasma 16 mg/dL 7-18 [facility] ([facility]) Glucose [Mass/volume] in Serum or Plasma 326 mg/dL 74-99 [facility] ([facility]) 100-125 mg/dL PRE-DIABETES/FASTING >126 mg/dL DIABETES/FASTING Creatinine 0.7 mg/dL 0.6-1.3 [facility] Sodium [Moles/volume] in Serum or Plasma 136 meq/L 136-145 [facility] ([facility]) Potassium [Moles/volume] in Serum or Plasma 4.1 meq/L 3.5-5.1 [facility] ([facility]) Carbon dioxide, total [Moles/volume] in Serum or Plasma 26 meq/L 21 -32 [facility] ([facility]) Chloride [Moles/volume] in Serum or Plasma 99 meq/L 98-107 [facility] ([facility]) Alkaline phosphatase isoenzyme [Units/volume] in Serum or Pl asma 131 mg/dL 46-116 [facility] ([facility]) Calcium [Mass/volume] in Serum or Plasma 8.7 mg/dL 8.5-10.1 [facility] ([facility]) Aspartate aminotransferase [Enzymatic activity/volume] in Serum or Plasma 15 U/L 15-37 [facility] ([facility] ) Total Bilirubin 0.7 mg/dL 0.2-1.0 [facility] ([facility]) Alanine aminotransferase [Enzymatic activity/volume] in Seru m or Plasma 20 U/L 12-78 [facility] ([facility]) Albumin [Mass/volume] in Serum or Plasma 3.6 g/dL 3.4-5.0 [facility]) Proteinase 3 Ab [Units/volume] in Serum 7.1 g/dL 6.4-8.2 [facility] ([facility]) A/G Ratio 1.03 CALC 1.00-1.90 [facility] Glomerular filtration rate/1.73 sq M pre dicted among non-blacks [Volume Rate/Area] in Serum or Plasma by Creatinine-based formula (MDRD) Laboratory test result [facility] Glomerular filtration rate/1.73 sq M pre dicted among blacks [Volume Rate/Area] in Serum or Plasma by Creatinine-based formula (MDRD) Laboratory test result [facility] ([facility]) <content>CHRONIC KIDNEY DISEASE STAGING PER NKF</content>
<content></content>
<content>STAGE I & II GFR >= 60 NORMAL TO MILDLY DECREASED</content>
<content>STAGE III GFR 30-59 MODERATELY DECREASED</content>
<content>STAGE IV GFR 15-29 SEVERELY DECREASED</content>
<content>STAGE V GFR <15 VERY LITTLE GFR LEFT</content>
<content>ESRD GFR <15 ON CHEMICAL INSPECTOR</content>
<content></content> ID Date Data Source [id number] 07/30/2020 08:47:00 AM EST [facility] ([facility]) Name Value Range Interpretation Code Description Data Lidia rce(s) Supporting Document(s) Hemoglobin A1c/Hemoglobin.total in Blood 10.4 % [facility] ([facility]) Lab Result Notes: Pre-Diabetes 5.7 - 6.4 % Diabetes = or > 6.5% Glucose mean value [Mass/volume] in Blood Estimated fr om glycated hemoglobin 252 mg/dL 60-110 [facility] ([facility] ) ID Date Data Source [id number] 07/30/2020 08:47:00 AM EST [facility] ([facility]) Name Value Range Interpretation Code Description Data Lidia rce(s) Supporting Document(s) Erythrocytes [#/volume] in Blood by Automated count 4.94 x10*6/UL 4.2 0-6.30 [facility] ([facility]) Leukocytes [#/volume] in Blood by Automated count 5.5 x10*3/UL 4.1-10 .9 [facility] ([facility]) Hemoglobin [Mass/volume] in Blood 15.7 g/dL 12.0-18.0 [facility] ([facility]) MCV 90.6 fL 80.0-97.0 [facility]) Hematocrit [Volume Fraction] of Blood by Automated count 44.8 % 3 7.0-51.0 [facility] ([facility]) MCH 31.7 pg 26.0-32.0 [facility]) MCHC 35.0 g/dL 31.0-38.0 [facility]) Platelets [#/volume] in Blood by Automated count 142 x10*3/UL 140-440 [facility] Erythrocyte distribution width [Ratio] by Automated count 12.5 % 11.6-13.7 [facility] ([facility]) MPV 7.5 FL 7.8-11.0 [facility]) Lymph % 16.8 % 10.0-58.5 [facility] Neut % 78.5 % 37.0-92.0 [facility]) Mid % 4.7 % 1.7-9.3 [facility]) Lymph # 0.9 x10*3/UL 0.6-4.1 [facility] ([facility]) Mid # 0.3 x10*3/UL 0.1-0.6 [facility] ([facility]) Neut # 4.3 x10*3/UL 2.0-7.8 [facility] ([facility]) Procedure Social History No Information Vital Signs ID Date Data Source UNK Name Value Range Interpretation Code Description Data Source(s) Body weight 327.7 [lb_av] 327.7 [lb_av] eCW1 ([facility]) Body height [in_i] eCW1 ([facility]) Body weight 148.64 kg 148.64 kg eCW1 ([facility]) Body mass index (BMI) [Ratio] 52.09 kg/m2 52.09 kg/m2 eCW1 ([facility]) Body mass index (BMI) [Ratio] 51.8 kg/m2 51.8 k g/m2 [facility] ([facility]) Heart rate 78 /min 78 /min [facility] ([facility]) Body height 66.5 [in_i] 66.5 [in_i] [facility] ([facility]) 5'6.50" Systolic blood pressure 128 mm[Hg] 128 mm[Hg] M [facility] ([facility]) Diastolic blood pressure 80 mm[Hg] 80 mm[Hg] [facility] ([facility]) Body weight 326.00 [lb_av] 326.00 [lb_av] [facility] T ([facility]) Body weight 326.4 [lb_av] 326.4 [lb_av] eCW1 ([facility]) Body weight 148.05 kg 148.05 kg eCW1 ([facility]) Body height [in_i] eCW1 ([facility]) Body mass index (BMI) [Ratio] 51.89 kg/m2 51.89 kg/m2 eCW1 ([facility]) Body weight 327.2 [lb_av] 327.2 [lb_av] eCW1 ([facility]) Body weight 148.42 kg 148.42 kg eCW1 ([facility]) Body height [in_i] eCW1 ([facility]) Body mass index (BMI) [Ratio] 52.01 kg/m2 52.01 kg/m2 eCW1 ([facility]) Body weight 325.4 [lb_av] 325.4 [lb_av] eCW1 ([facility]) Body height [in_i] eCW1 ([facility]) Body mass index (BMI) [Ratio] 51.73 kg/m2 51.73 kg/m2 eCW1 ([facility]) Body weight 322.6 [lb_av] 322.6 [lb_av] eCW1 ([facility]) Body height [in_i] eCW1 ([facility]) Body mass index (BMI) [Ratio] 51.28 kg/m2 51.28 kg/m2 W1 ([facility]) Heart rate 76 /min 76 /min [facility] ([facility]) Diastolic blood pressure 78 mm[Hg] 78 mm[Hg] [facility] ([facility]) Body height 66.5 [in_i] 66.5 [in_i] [facility] ([facility]) 5'6.50" Systolic blood pressure 124 mm[Hg] 124 mm[Hg] M [facility] ([facility]) Body weight 321.00 [lb_av] 321.00 [lb_av] [facility] T ([facility]) Body mass index (BMI) [Ratio] 51.0 kg/m2 51.0 k g/m2 [facility] ([facility]) Body weight 321.4 [lb_av] 321.4 [lb_av] eCW1 ([facility]) Body height [in_i] eCW1 ([facility]) Body mass index (BMI) [Ratio] 51.09 kg/m2 51.09 kg/m2 eCW1 ([facility]) Body weight 318.8 [lb_av] 318.8 [lb_av] eCW1 ([facility]) Body height [in_i] eCW1 ([facility]) Body mass index (BMI) [Ratio] 50.68 kg/m2 50.68 kg/m2 eCW1 ([facility]) Body weight 316.2 [lb_av] 316.2 [lb_av] eCW1 ([facility]) Body height [in_i] eCW1 ([facility]) Body mass index (BMI) [Ratio] 50.27 kg/m2 50.27 kg/m2 eCW1 ([facility]) Systolic blood pressure 112 mm[Hg] 112 mm[Hg] M [facility] ([facility]) RT Arm Diastolic blood pressure 80 mm[Hg] 80 mm[Hg] [facility] ([facility]) RT Arm Heart rate 76 /min 76 /min [facility] ([facility]) Body height 66.5 [in_i] 66.5 [in_i] [facility] ([facility]) 5'6.50" Body weight 318.12 [lb_av] 318.12 [lb_av] [facility] T ([facility]) Body mass index (BMI) [Ratio] 50.6 kg/m2 50.6 k g/m2 [facility] ([facility]) Body weight 318.6 [lb_av] 318.6 [lb_av] eCW1 ([facility]) Body height [in_i] eCW1 ([facility]) Body mass index (BMI) [Ratio] 50.65 kg/m2 50.65 kg/m2 eCW1 ([facility]) Systolic blood pressure 128 mm[Hg] 128 mm[Hg] M [facility] ([facility]) Diastolic blood pressure 78 mm[Hg] 78 mm[Hg] [facility] ([facility]) Heart rate 72 /min 72 /min [facility] ([facility]) Body height 66.5 [in_i] 66.5 [in_i] [facility] ([facility]) 5'6.50" Body weight 313.00 [lb_av] 313.00 [lb_av] [facility] T ([facility]) Body mass index (BMI) [Ratio] 49.8 kg/m2 49.8 k g/m2 [facility] ([facility]) Heart rate 90 /min 90 /min [facility] Body height 66.5 [in_i] 66.5 [in_i] [facility] ([facility]) 5'6.50" Body weight 318.00 [lb_av] 318.00 [lb_av] [facility] T ([facility]) Oxygen saturation in Arterial blood by Pulse oximetry 97 % 97 % [facility] ([facility]) RM Air Body mass index (BMI) [Ratio] 50.6 kg/m2 50.6 k g/m2 [facility] ([facility]) Body weight 311.00 [lb_av] 311.00 [lb_av] [facility] T ([facility]) Body temperature 96.6 [degF] 96.6 [degF] [facility] ([facility]) Body mass index (BMI) [Ratio] 50.2 kg/m2 50.2 k g/m2 [facility] ([facility]) Body height 66 [in_i] 66 [in_i] [facility] ([facility]) 5'6" Oxygen saturation in Arterial blood by Pulse oximetry 96 % 96 % [facility] ([facility]) RM Air Systolic blood pressure 128 mm[Hg] 128 mm[Hg] M [facility] ([facility]) Diastolic blood pressure 70 mm[Hg] 70 mm[Hg] [facility] ([facility]) Heart rate 88 /min 88 /min [facility] ([facility]) Body height 66.5 [in_i] 66.5 [in_i] [facility] ([facility]) 5'6.50" Body weight 325.00 [lb_av] 325.00 [lb_av] [facility] T ([facility]) Systolic blood pressure 124 mm[Hg] 124 mm[Hg] M [facility] ([facility]) Diastolic blood pressure 78 mm[Hg] 78 mm[Hg] [facility] ([facility]) Heart rate 88 /min 88 /min [facility] ([facility]) Body height 66.5 [in_i] 66.5 [in_i] [facility] ([facility]) 5'6.50" Oxygen saturation in Arterial blood by Pulse oximetry 98 % 98 % [facility] ([facility]) Body mass index (BMI) [Ratio] 51.7 kg/m2 51.7 k g/m2 [facility] ([facility]) Systolic blood pressure 126 mm[Hg] 126 mm[Hg] [facility] ([facility], [facility]) Diastolic blood pressure 74 mm[Hg] 74 mm[Hg] [facility] ([facility]) Heart rate 93 /min 93 /min [facility] ([facility]) Respiratory rate 16 /min 16 /min [facility] ( [facility]) Oxygen saturation in Arterial blood by Pulse oximetry 96 % 96 % [facility] ([facility]) Body temperature 97.7 [degF] 97.7 [degF] [facility] ([facility], [facility]) Body weight 310.00 [lb_av] 310.00 [lb_av] [facility] ([facility], [facility]) Body height 66.5 [in_i] 66.5 [in_i] [facility] ([facility]) 5'6.50" Body mass index (BMI) [Ratio] 49.3 kg/m2 49.3 k g/m2 [facility] ([facility])
[2021-04-26] MEDS ORDERED: METF750T36 (18:29)
[2021-04-26] MEDS ORDERED: ROSU10TA6 (18:29)
[2021-04-26] MEDS ORDERED: DULA3PEN (18:29)
[2021-04-26] MEDS ORDERED: TRES1INJ (18:29)
[2021-04-26] MEDS ORDERED: NS 1,000 ML IV ONE (18:45)
--- NOTE | 2021-04-26 19:23 | REP ---
INDICATION: n/v/d. COMPARISON: None. TECHNIQUE: Single portable AP view of the chest was performed. FINDINGS: There is no acute infiltrate or pulmonary edema. Lungs are clear. The heart is not significantly enlarged. The mediastinal silhouette is unremarkable. The visualized osseous structures are intact. IMPRESSION: No acute pulmonary disease. <Electronically signed by Jere Carter > 04/26/21 [id number]
--- OUTSIDE RECORDS SUMMARY | 2021-04-26 19:28 | CCD ---
Author Author [facility] Organization [facility] Address Unknown Phone Unavailable Care Team Providers Care Beauty Culture Teacher Name Role Phone LePine, M Radha EXAMINATION PROCTOR Unavailable Unavailable LePine, M Radha EXAMINATION PROCTOR Unavailable Unavailable LePine, M Radha EXAMINATION PROCTOR Unavailable Unavailable LePine, M Radha EXAMINATION PROCTOR Unavailable Unavailable LePine, M Radha EXAMINATION PROCTOR Unavailable Unavailable LePine, M Radha EXAMINATION PROCTOR Unavailable Unavailable LePine, M Radha EXAMINATION PROCTOR Unavailable Unavailable LePine, M Radha EXAMINATION PROCTOR Unavailable Unavailable LePine, M Radha EXAMINATION PROCTOR Unavailable Unavailable LePine, M Radha EXAMINATION PROCTOR Unavailable Unavailable LePine, M Radha EXAMINATION PROCTOR Unavailable Unavailable LePine, M Radha EXAMINATION PROCTOR Unavailable Unavailable LePine, M Radha EXAMINATION PROCTOR Unavailable Unavailable LePine, M Radha EXAMINATION PROCTOR Unavailable Unavailable LePine, M Radha EXAMINATION PROCTOR Unavailable Unavailable LePine, M Radha EXAMINATION PROCTOR Unavailable Unavailable LePine, M Radha EXAMINATION PROCTOR Unavailable Unavailable LePine, M Radha EXAMINATION PROCTOR Unavailable Unavailable LePine, M Radha EXAMINATION PROCTOR Unavailable Unavailable LePine, M Radha EXAMINATION PROCTOR Unavailable Unavailable LePine, M Radha EXAMINATION PROCTOR Unavailable Unavailable LePine, M Radha EXAMINATION PROCTOR Unavailable Unavailable LePine, M Radha EXAMINATION PROCTOR Unavailable Unavailable LePine, M Radha EXAMINATION PROCTOR Unavailable Unavailable LePine, M Radha EXAMINATION PROCTOR Unavailable Unavailable LePine, M Radha EXAMINATION PROCTOR Unavailable Unavailable LePine, M Radha EXAMINATION PROCTOR Unavailable Unavailable LePine, M Radha EXAMINATION PROCTOR Unavailable Unavailable LePine, M Radha EXAMINATION PROCTOR Unavailable Unavailable LePine, M Radha EXAMINATION PROCTOR Unavailable Unavailable LePine, M Radha EXAMINATION PROCTOR Unavailable Unavailable LePine, M Radha EXAMINATION PROCTOR Unavailable Unavailable LePine, M Radha EXAMINATION PROCTOR Unavailable Unavailable LePine, M Radha EXAMINATION PROCTOR Unavailable Unavailable LePine, M Radha EXAMINATION PROCTOR Unavailable Unavailable LePine, M Radha EXAMINATION PROCTOR Unavailable Unavailable LePine, M Radha EXAMINATION PROCTOR Unavailable Unavailable LePine, M Radha EXAMINATION PROCTOR Unavailable Unavailable LePine, M Radha EXAMINATION PROCTOR Unavailable Unavailable LePine, M Radha EXAMINATION PROCTOR Unavailable Unavailable LePine, M Radha EXAMINATION PROCTOR Unavailable Unavailable LePine, M Radha EXAMINATION PROCTOR Unavailable Unavailable LePine, M Radha EXAMINATION PROCTOR Unavailable Unavailable LePine, M Radha EXAMINATION PROCTOR Unavailable Unavailable LePine, M Radha EXAMINATION PROCTOR Unavailable Unavailable LePine, M Radha EXAMINATION PROCTOR Unavailable Unavailable LePine, M Radha EXAMINATION PROCTOR Unavailable Unavailable LePine, M Radha EXAMINATION PROCTOR Unavailable Unavailable LePine, M Radha EXAMINATION PROCTOR Unavailable Unavailable LePine, M Radha EXAMINATION PROCTOR Unavailable Unavailable LePine, M Radha EXAMINATION PROCTOR Unavailable Unavailable LePine, M Radha EXAMINATION PROCTOR Unavailable Unavailable LePine, M Radha EXAMINATION PROCTOR Unavailable Unavailable LePine, M Radha EXAMINATION PROCTOR Unavailable Unavailable LePine, M Radha EXAMINATION PROCTOR Unavailable Unavailable LePine, M Radha EXAMINATION PROCTOR Unavailable Unavailable LETTIERE, A SYED PA Unavailable [...] MD Unavailable Unavailable PadminiNikki MD Unavailable Unavailable BethpageNikki MD Unavailable Unavailable PadminiNikki MD Unavailable Unavailable BethpageNikki MD Unavailable Unavailable BethpageNikki MD Unavailable Unavailable BethpageNikki MD Unavailable Unavailable BethpageNikki MD Unavailable Unavailable PadminiNikki MD Unavailable Unavailable PadminiNikki MD Unavailable Unavailable BethpageNikki MD Unavailable Unavailable PadminiNikki MD Unavailable Unavailable BethpageNikki MD Unavailable Unavailable PadminiNikki MD Unavailable Unavailable PadminiNikki MD Unavailable Unavailable PadminiNikki MD Unavailable Unavailable BethpageNikki MD Unavailable Unavailable BethpageNikki MD Unavailable Unavailable PadminiNikki MD Unavailable Unavailable PadminiNikki MD Unavailable Unavailable PadminiNikki MD Unavailable Unavailable PadminiNikki MD Unavailable Unavailable PadminiNikki MD Unavailable Unavailable PadminiNikki MD Unavailable Unavailable BethpageNikki MD Unavailable Unavailable BethpageNikki MD Unavailable Unavailable PadminiNikki MD Unavailable Unavailable PadminiNikki MD Unavailable Unavailable BethpageNikki MD Unavailable Unavailable PadminiNikki MD Unavailable Unavailable BethpageNikki MD Unavailable Unavailable BethpageNikki MD Unavailable Unavailable BethpageNikki MD Unavailable Unavailable BethpageNikki MD Unavailable Unavailable BethpageNikki MD Unavailable Unavailable PadminiNikki MD Unavailable Unavailable PadminiNikki MD Unavailable Unavailable BethpageNikki MD Unavailable Unavailable BethpageNikki MD Unavailable Unavailable PadminiNikki MD Unavailable Unavailable PadminiNikki MD Unavailable Unavailable PadminiNikki MD Unavailable Unavailable PadminiNikki MD Unavailable Unavailable BethpageNikki MD Unavailable Unavailable PadminiNikki MD Unavailable Unavailable BethpageNikki MD Unavailable Unavailable BethpageNikki MD Unavailable Unavailable PadminiNikki MD Unavailable Unavailable PadminiNikki MD Unavailable Unavailable PadminiNikki MD Unavailable Unavailable PadminiNikki MD Unavailable Unavailable BethpageNikki MD Unavailable Unavailable BethpageNikki MD Unavailable Unavailable BethpageNikki MD Unavailable Unavailable PadminiNikki MD Unavailable Unavailable BethpageNikki MD Unavailable Unavailable BethpageNikki MD Unavailable Unavailable Padmini, F Santiago MD Unavailable Unavailable Nikki Washington MD Unavailable Unavailable Nikki Washington MD Unavailable Unavailable Nikki Washington MD Unavailable Unavailable Nikki Washington MD Unavailable Unavailable BethpageNikki wu MD Unavailable Unavailable BethpageNikki wu MD Unavailable Unavailable PadminiNikki wu MD Unavailable Unavailable Nikki Washington MD Unavailable Unavailable Nikki Washington MD Unavailable Unavailable Nkiki Washington MD Unavailable Unavailable Nikki Washington MD [...] J Marilee ANP Unavailable Unavailable ABELARDO, J Marliee ANP Unavailable Unavailable ABELARDO, J Marilee ANP [...] is protected by Article 27-F of the [facility] Public Health law. If you continue you may have access to information: Regarding HIV / AIDS; Provided by facilities licensed or operated by the [facility] Office of Mental Health; or Provided by the [facility] Office for People With Developmental Disabilities. If such information is present, then the following [facility] mandated warning applies: This information has been [...] law may result in a fine or alf sentence or both. A general authorization for [...] Date Indications Data Source(s ) [place] [address] [facility] [address] 04/08/2021 12:00:00 AM EDT [facility]1 [facility] Outpatient Attender: Jack Davis 0 03/24/2021 02:00:00 PM EDT [facility] ([facility] ) [place] [address] [facility] [address] 03/16/2021 12:00:00 AM EDT eCW1 [facility] [place] [address] [facility] [address] 02/23/2021 12:00:00 AM EDT [facility]CW1 [facility] [place] [address] [facility] [address] 01/18/2021 12:00:00 AM EDT [facility] [place] [place] [address] [facility] [address] 12/14/2020 12:00:00 AM EDT [facility]CW1 [facility] [place] Outpatient Attender: Jack Davis 0 11/12/2020 09:40:00 AM EDT [facility] ([facility] ) [place] [address] [facility] [address] 11/11/2020 12:00:00 AM EDT eCW1 ([facility] [place] [address] [facility] [address] 10/07/2020 12:00:00 AM EDT eCW1 ([facility] [place] [address] [facility] [address] 09/23/2020 12:00:00 AM EDT eCW1 ([facility]) Outpatient Attender: Jack Davis 0 09/18/2020 12:00:00 PM EST [facility] ([facility] ) [place] [address] [facility] [address] 09/09/2020 12:00:00 AM EST eCW1 ([facility] Outpatient Attender: Jack Davis 0 08/17/2020 02:00:00 PM EST [facility] ([facility] ) Outpatient Attender: Radha Davis 07/31 12:20:00 PM EST [facility] ([facility] ) Office Visit Attender: Braxton [facility] 10:30:00 AM EST [facility] ([facility]) Office Visit Attender: Braxton WIGGINS [facility] 02:15:00 PM EST [facility] ([facility]) Outpatient Attender: Marilee Davis 04/2020 12:15:00 PM EST [facility] ([facility] ) Outpatient Attender: Marilee Davis 02:30:00 PM EDT [facility] ([facility] ) Outpatient Attender: SYED Encinas russ 04/22/2020 03:30:00 PM EDT [facility] ([facility]) Immunizations Vaccine Date Status Description Data Source(s) COVID-19 VACCINE Moderna 10/02/2020 12:00:00 AM EDT completed [facility] Vaccine Series Complete: YESThis Data wa s Submitted to [facility] Via [email or web address]. COVID-19 VACCINE Moderna 09/04/2020 12:00:00 AM EST completed [facility] Vaccine Series Complete: NOThis Data was Submitted to [facility] Via [email or web address]. Medications Medication Brand Name Start Date Product [...] 11/12/2020 12:00:00 AM EDT SUBCUTANEOUS active [facility] ([facility]) 0.5 ML dulaglutide 3 MG/ML Auto-Injector [Trulicity] Jeramy ty 11/12/2020 12:00:00 AM EDT completed [facility] ([facility]) 200 unit/mL (3 mL) 11/02/2020 12:00:00 [...] 08/17/2020 12:00:00 AM EST act marko [facility] ([facility]) 10 mg 08/13/2020 12:00:00 AM EST [...] Novofine 08/06/2020 12:00:00 AM EST active [facility] ([facility]) 150 mg 07/31/2020 12:00:00 AM EST [...] Euflexxa 06/22/2020 12:00:00 AM EST active [facility] ([facility]) Fluconazole 150 MG Oral [...] Ciprodex 04/22/2020 12:00:00 AM EDT active [facility] ([facility]) 0.3-0.1 % 04/22/2020 12:00:00 AM EDT drops,suspension [...] type / Coverage type Policy ID Covered democrat ID Covered democrat's relationship to devi Policy Devi Plan Information Lifetime Benefit ([employer]) Commercial [id number] Family Dependent [id number] Lifetime Benefit ([employer]) Commercial [id number] Family Depende nt Lifetime Benefit Solution [facility] Part B [id number] Family Dependent 0 [id number] [place] 306/806 [id number] HU2 [id number] [place]BS [place] PPO 302/307 [id number] HU2 [id number] BS [place] Trad/MX Commercial [id number] Family Dependent 802 BS [place] Trad/MX Commercial [id number] Family Dependent [id number] BS [place] Commercial [id number] Family Dependent V [id number] BS [place] Commercial [id number] Family Dependent V [id number] BS [place] Commercial [id number] Family Dependent V [id number] BS [place] Commercial [id number] Family Dependent V [id number] BS [place] Commercial [id number] Family Dependent V [id number] BS [place] Commercial [id number] Family Dependent V [id number] BS [place] Commercial [id number] Family Dependent V [id number] BS [place] Commercial [id number] Family Dependent V [id number] [place] BCBS B [id number] P [id number] Lifetime Benefit ([employer]) Commercial [id number] Family Dependent [id number] [employer] Commercial [id number] Family Dependent [id number] [employer]/[place] Commercial [id number] Family Dependent [id number] Lifetime Benefit ([employer]) Commercial [id number] Family Depende nt BCBS/[place] Commercial [id number] Family Dependent BS Of [place] Commercial [id number] Family Dependent [employer] MEDICAL CLAIMS [id number] HU2 [id number] [employer] P [id number] P [id number] LIFETIME BENEFIT SOLUTIONS [id number] [place] PPO 302/307 [id number] HU2 [id number] Problems, Conditions, and Diagnoses Code Display Name Description Problem Type Effective Dates Data Source(s) E11.65 Hyperglycemia due to type 2 diabetes cullen litus Diabetes mellitus with hyperglycemia Problem 02/23/2021 12:00:00 AM EDT eCW1 ([facility]) Surgeries/Procedures Procedure Description Date Indications Data Source(s) OFFICE OUTPATIENT VISIT 25 MINUTES 03/24/2021 12:00:00 AM EDT [facility] ([facility]) OFFICE OUTPATIENT VISIT 15 MINUTES 11/12/2020 12:00:00 AM EDT [facility] ([facility]) ARTHROCENTESIS ASPIR&/INJECTION MAJOR JT/BURSA 021 12:00:00 AM EST [facility] ([facility]) ARTHROCENTESIS ASPIR&/INJECTION MAJOR JT/BURSA 021 12:00:00 AM EST [facility] ([facility]) ARTHROCENTESIS ASPIR&/INJECTION MAJOR JT/BURSA 020 12:00:00 AM EST [facility] ([facility]) Mammogram 05/13/2020 12:00:00 AM EST M EDENT ([facility]) Remove Impact Cerumen Irrigati 04/22/2020 12:00:00 AM EDT [facility] ([facility]) Results ID Date Data Source [id number] 03/23/2021 08:51:00 AM EDT [facility] ([facility]) Name Value Range Interpretation Code Description Data Lidia rce(s) Supporting Document(s) Microalbumin Urine 10.3 mg/L 1.3-20.0 [facility] ([facility]) Urine Creatinine 142.8 mg/dL 30.0-125.0 [facility] ([facility]) Microalb/Creat Ratio 7.2 ug/mg 0.0-30.0 [facility] ([facility]) ID Date Data Source [id number] 03/23/2021 08:51:00 AM EDT [facility] ([facility]) Name Value Range Interpretation Code Description Data Lidia rce(s) Supporting Document(s) Cholesterol [Mass/volume] in Serum or Plasma 201 mg/dL 131-200 [facility] ([facility]) Cholesterol in LDL [Mass/volume] in Serum or Plasma by calcu lation 104 CALC 50-159 [facility] ([facility]) Cholesterol in HDL [Mass/volume] in Serum or Plasma 52 mg/dL 35-60 [facility] ([facility]) Triglyceride [Mass/volume] in Serum or Plasma 227 mg/dL 30-150 [facility] ([facility]) ID Date Data Source [id number] 03/23/2021 08:51:00 AM EDT [facility] ([facility]) Name Value Range Interpretation Code Description Data Lidia rce(s) Supporting Document(s) Urea nitrogen [Mass/volume] in Serum or Plasma 13 mg/dL 7-18 [facility] ([facility]) Glucose [Mass/volume] in Serum or Plasma 108 mg/dL 74-99 [facility] ([facility]) 100-125 mg/dL PRE-DIABETES/FASTING >126 mg/dL DIABETES/FASTING Sodium [Moles/volume] in Serum or Plasma 142 meq/L 136-145 [facility] ([facility]) Creatinine 0.9 mg/dL 0.6-1.3 [facility] ([facility]) Potassium [Moles/volume] in Serum or Plasma 4.3 meq/L 3.5-5.1 [facility] ([facility]) Calcium [Mass/volume] in Serum or Plasma 8.7 mg/dL 8.5-10.1 [facility] Chloride [Moles/volume] in Serum or Plasma 105 meq/L 98-107 [facility] ([facility]) Carbon dioxide, total [Moles/volume] in Serum or Plasma 32 meq/L 21 -32 [facility] ([facility]) Alkaline phosphatase isoenzyme [Units/volume] in Serum or Pl asma 87 mg/dL 46-116 [facility] Total Bilirubin 0.6 mg/dL 0.2-1.0 [facility] Aspartate aminotransferase [Enzymatic activity/volume] in Serum or Plasma 16 U/L 15-37 [facility] ([facility] ) Alanine aminotransferase [Enzymatic activity/volume] in Seru m or Plasma 17 U/L 12-78 [facility] ([facility]) Albumin [Mass/volume] in Serum or Plasma 3.4 g/dL 3.4-5.0 [facility] ([facility]) Proteinase 3 Ab [Units/volume] in Serum 6.6 g/dL 6.4-8.2 [facility] ([facility]) A/G Ratio 1.06 CALC 1.00-1.90 [facility] ([facility]) Glomerular filtration rate/1.73 sq M pre dicted among non-blacks [Volume Rate/Area] in Serum or Plasma by Creatinine-based formula (MDRD) Laboratory test result [facility] Glomerular filtration rate/1.73 sq M pre dicted among blacks [Volume Rate/Area] in Serum or Plasma by Creatinine-based formula (MDRD) Laboratory test result [facility]) <content>CHRONIC KIDNEY DISEASE STAGING PER NKF</content>
<content></content>
<content>STAGE I & II GFR >= 60 NORMAL TO MILDLY DECREASED</content>
<content>STAGE III GFR 30-59 MODERATELY DECREASED</content>
<content>STAGE IV GFR 15-29 SEVERELY DECREASED</content>
<content>STAGE V GFR <15 VERY LITTLE GFR LEFT</content>
<content>ESRD GFR <15 ON SPLINE ROLLING MACHINE JOB SETTER</content>
<content></content> ID Date Data Source [id number] 03/23/2021 08:51:00 AM EDT [facility] Name Value Range Interpretation Code Description Data Lidia rce(s) Supporting Document(s) Glucose mean value [Mass/volume] in Blood Estimated fr om glycated hemoglobin 120 mg/dL 60-110 [facility] Hemoglobin A1c/Hemoglobin.total in Blood 5.8 % [facility] ([facility]) Lab Result Notes: Pre-Diabetes 5.7 - 6.4 % Diabetes = or > 6.5% ID Date Data Source [id number] 11/11/2020 09:15:00 AM EDT [facility] Name Value Range Interpretation Code Description Data Lidia rce(s) Supporting Document(s) Cobalamin (Vitamin B12) [Mass/volume] in Serum or Plasma Lab oratory test result [id number] [facility] ([facility] VITAMIN B12 NORMAL RANGE NORMAL 247 - 911 PG/ML INDETERMINATE 211 - 246 PG/ML DEFICIENT LESS THAN 211 PG/ML ID Date Data Source [id number] 11/11/2020 09:15:00 AM EDT [facility] ([facility]) Name Value Range Interpretation Code Description Data Lidia rce(s) Supporting Document(s) Thyrotropin [Units/volume] in Serum or Plasma by Detec tion limit <= 0.05 mIU/L 1.42 uIU/mL 0.36-3.74 [facility] ([facility] ) ID Date Data Source [id number] 11/11/2020 09:14:00 AM EDT [facility] ([facility]) Name Value Range Interpretation Code Description Data Lidia rce(s) Supporting Document(s) Glucose [Mass/volume] in Serum or Plasma 161 mg/dL 74-99 [facility] ([facility]) 100-125 mg/dL PRE-DIABETES/FASTING >126 mg/dL DIABETES/FASTING Creatinine 0.8 mg/dL 0.6-1.3 [facility] ([facility]) Sodium [Moles/volume] in Serum or Plasma 139 meq/L 136-145 [facility] ([facility]) Urea nitrogen [Mass/volume] in Serum or Plasma 14 mg/dL 7-18 [facility] ([facility]) Chloride [Moles/volume] in Serum or Plasma 102 meq/L 98-107 [facility] ([facility]) Potassium [Moles/volume] in Serum or Plasma 4.3 meq/L 3.5-5.1 [facility] ([facility]) Glomerular filtration rate/1.73 sq M pre dicted among non-blacks [Volume Rate/Area] in Serum or Plasma by Creatinine-based formula (MDRD) Laboratory test result [facility] ([facility] ) Carbon dioxide, total [Moles/volume] in Serum or Plasma 29 meq/L 21 -32 [facility] ([facility]) Calcium [Mass/volume] in Serum or Plasma 8.5 mg/dL 8.5-10.1 [facility] ([facility]) Glomerular filtration rate/1.73 sq M pre dicted among blacks [Volume Rate/Area] in Serum or Plasma by Creatinine-based formula (MDRD) Laboratory test result [facility] ([facility]) <content>CHRONIC KIDNEY DISEASE STAGING PER NKF</content>
<content></content>
<content>STAGE I & II GFR >= 60 NORMAL TO MILDLY DECREASED</content>
<content>STAGE III GFR 30-59 MODERATELY DECREASED</content>
<content>STAGE IV GFR 15-29 SEVERELY DECREASED</content>
<content>STAGE V GFR <15 VERY LITTLE GFR LEFT</content>
<content>ESRD GFR <15 ON SPLINE ROLLING MACHINE JOB SETTER</content>
<content></content> ID Date Data Source [id number] 11/11/2020 09:14:00 AM EDT [facility] ([facility]) Name Value Range Interpretation Code Description Data Lidia rce(s) Supporting Document(s) Hemoglobin A1c/Hemoglobin.total in Blood 6.1 % [facility] Lab Result Notes: Pre-Diabetes 5.7 - 6.4 % Diabetes = or > 6.5% Glucose mean value [Mass/volume] in Blood Estimated fr om glycated hemoglobin 128 mg/dL 60-110 [facility] ID Date Data Source [id number] 11/11/2020 09:14:00 AM EDT [facility] ([facility]) Name Value Range Interpretation Code Description Data Lidia rce(s) Supporting Document(s) Hemoglobin A1c/Hemoglobin.total in Blood Laboratory test result [facility] ID Date Data Source [id number] 07/31/2020 02:26:00 PM EST [facility] ([facility] Name Value Range Interpretation Code Description Data Liida rce(s) Supporting Document(s) Microalbumin Urine 8.5 mg/L 1.3-20.0 [facility] ([facility]) Urine Creatinine 36.8 mg/dL 30.0-125.0 [facility]) Microalb/Creat Ratio 23.1 ug/mg 0.0-30.0 [facility] ( [facility]) ID Date Data Source [id number] 07/30/2020 08:48:00 AM EST [facility] ([facility]) Name Value Range Interpretation Code Description Data Lidia rce(s) Supporting Document(s) Hemoglobin A1c/Hemoglobin.total in Blood Laboratory test result [facility] ([facility]) ID Date Data Source [id number] 07/30/2020 08:47:00 AM EST [facility] ([facility]) Name Value Range Interpretation Code Description Data Lidia rce(s) Supporting Document(s) Triglyceride [Mass/volume] in Serum or Plasma 331 mg/dL 30-150 [facility] ([facility]) Cholesterol [Mass/volume] in Serum or Plasma 253 mg/dL 131-200 [facility] ([facility]) Cholesterol in LDL [Mass/volume] in Serum or Plasma by calcu lation 128 CALC 50-159 [facility] ([facility]) Cholesterol in HDL [Mass/volume] in Serum or Plasma 59 mg/dL 35-60 [facility] ([facility]) ID Date Data Source [id number] 07/30/2020 08:47:00 AM EST [facility] ([facility]) Name Value Range Interpretation Code Description Data Lidia rce(s) Supporting Document(s) Urea nitrogen [Mass/volume] in Serum or Plasma 16 mg/dL 7-18 [facility] ([facility]) Glucose [Mass/volume] in Serum or Plasma 326 mg/dL 74-99 [facility] ([facility]) 100-125 mg/dL PRE-DIABETES/FASTING >126 mg/dL DIABETES/FASTING Creatinine 0.7 mg/dL 0.6-1.3 [facility] Sodium [Moles/volume] in Serum or Plasma 136 meq/L 136-145 [facility] ([facility]) Potassium [Moles/volume] in Serum or Plasma 4.1 meq/L 3.5-5.1 [facility] ([facility]) Carbon dioxide, total [Moles/volume] in Serum or Plasma 26 meq/L 21 -32 [facility] ([facility]) Chloride [Moles/volume] in Serum or Plasma 99 meq/L 98-107 [facility] ([facility]) Alkaline phosphatase isoenzyme [Units/volume] in Serum or Pl asma 131 mg/dL 46-116 [facility] ([facility]) Calcium [Mass/volume] in Serum or Plasma 8.7 mg/dL 8.5-10.1 [facility] ([facility]) Aspartate aminotransferase [Enzymatic activity/volume] in Serum or Plasma 15 U/L 15-37 [facility] ([facility] ) Total Bilirubin 0.7 mg/dL 0.2-1.0 [facility] ([facility]) Alanine aminotransferase [Enzymatic activity/volume] in Seru m or Plasma 20 U/L 12-78 [facility] ([facility]) Albumin [Mass/volume] in Serum or Plasma 3.6 g/dL 3.4-5.0 [facility] ([facility]) Proteinase 3 Ab [Units/volume] in Serum 7.1 g/dL 6.4-8.2 [facility] ([facility]) A/G Ratio 1.03 CALC 1.00-1.90 [facility] Glomerular filtration rate/1.73 sq M pre dicted among non-blacks [Volume Rate/Area] in Serum or Plasma by Creatinine-based formula (MDRD) Laboratory test result [facility] Glomerular filtration rate/1.73 sq M pre dicted among blacks [Volume Rate/Area] in Serum or Plasma by Creatinine-based formula (MDRD) Laboratory test result [facility] ([facility]) <content>CHRONIC KIDNEY DISEASE STAGING PER NKF</content>
<content></content>
<content>STAGE I & II GFR >= 60 NORMAL TO MILDLY DECREASED</content>
<content>STAGE III GFR 30-59 MODERATELY DECREASED</content>
<content>STAGE IV GFR 15-29 SEVERELY DECREASED</content>
<content>STAGE V GFR <15 VERY LITTLE GFR LEFT</content>
<content>ESRD GFR <15 ON SPLINE ROLLING MACHINE JOB SETTER</content>
<content></content> ID Date Data Source [id number] 07/30/2020 08:47:00 AM EST [facility] ([facility]) Name Value Range Interpretation Code Description Data Lidia rce(s) Supporting Document(s) Hemoglobin A1c/Hemoglobin.total in Blood 10.4 % [facility] ([facility]) Lab Result Notes: Pre-Diabetes 5.7 - 6.4 % Diabetes = or > 6.5% Glucose mean value [Mass/volume] in Blood Estimated fr om glycated hemoglobin 252 mg/dL 60-110 [facility] ([facility] ) ID Date Data Source [id number] 07/30/2020 08:47:00 AM EST [facility] ([facility]) Name Value Range Interpretation Code Description Data Lidia rce(s) Supporting Document(s) Erythrocytes [#/volume] in Blood by Automated count 4.94 x10*6/UL 4.2 0-6.30 [facility] ([facility]) Leukocytes [#/volume] in Blood by Automated count 5.5 x10*3/UL 4.1-10 .9 [facility] ([facility]) Hemoglobin [Mass/volume] in Blood 15.7 g/dL 12.0-18.0 [facility] ([facility]) MCV 90.6 fL 80.0-97.0 [facility] ([facility]) Hematocrit [Volume Fraction] of Blood by Automated count 44.8 % 3 7.0-51.0 [facility] ([facility]) MCH 31.7 pg 26.0-32.0 [facility] ([facility]) MCHC 35.0 g/dL 31.0-38.0 [facility] ([facility]) Platelets [#/volume] in Blood by Automated count 142 x10*3/UL 140-440 [facility] Erythrocyte distribution width [Ratio] by Automated count 12.5 % 11.6-13.7 [facility] ([facility]) MPV 7.5 FL 7.8-11.0 [facility] ([facility]) Lymph % 16.8 % 10.0-58.5 [facility] Neut % 78.5 % 37.0-92.0 [facility] ([facility]) Mid % 4.7 % 1.7-9.3 [facility] ([facility]) Lymph # 0.9 x10*3/UL 0.6-4.1 [facility] ([facility]) Mid # 0.3 x10*3/UL 0.1-0.6 [facility] ([facility]) Neut # 4.3 x10*3/UL 2.0-7.8 [facility] ([facility]) Procedure Social History No Information Vital Signs ID Date Data Source UNK Name Value Range Interpretation Code Description Data Source(s) Body weight 148.64 kg 148.64 kg eCW1 ([facility]) Body weight 327.7 [lb_av] 327.7 [lb_av] eCW1 ([facility]) Body height [in_i] eCW1 ([facility]) Body mass index (BMI) [Ratio] 52.09 kg/m2 52.09 kg/m2 eCW1 ([facility]) Body mass index (BMI) [Ratio] 51.8 kg/m2 51.8 k g/m2 [facility] ([facility]) Heart rate 78 /min 78 /min [facility] ([facility]) Body height 66.5 [in_i] 66.5 [in_i] [facility] ([facility]) 5'6.50" Systolic blood pressure 128 mm[Hg] 128 mm[Hg] M [facility] ([facility]) Diastolic blood pressure 80 mm[Hg] 80 mm[Hg] [facility] ([facility]) Body weight 326.00 [lb_av] 326.00 [lb_av] [facility] T ([facility]) Body weight 326.4 [lb_av] 326.4 [lb_av] eCW1 ([facility]) Body weight 148.05 kg 148.05 kg eCW1 ([facility]) Body height [in_i] eCW1 ([facility]) Body mass index (BMI) [Ratio] 51.89 kg/m2 51.89 kg/m2 eCW1 ([facility]) Body weight 327.2 [lb_av] 327.2 [lb_av] eCW1 ([facility]) Body weight 148.42 kg 148.42 kg eCW1 ([facility]) Body height [in_i] eCW1 ([facility]) Body mass index (BMI) [Ratio] 52.01 kg/m2 52.01 kg/m2 eCW1 ([facility]) Body weight 325.4 [lb_av] 325.4 [lb_av] eCW1 ([facility]) Body height [in_i] eCW1 ([facility]) Body mass index (BMI) [Ratio] 51.73 kg/m2 51.73 kg/m2 eCW1 ([facility]) Body weight 322.6 [lb_av] 322.6 [lb_av] eCW1 ([facility]) Body height [in_i] eCW1 ([facility]) Body mass index (BMI) [Ratio] 51.28 kg/m2 51.28 kg/m2 eCW1 ([facility]) Diastolic blood pressure 78 mm[Hg] 78 mm[Hg] [facility] ([facility]) Heart rate 76 /min 76 /min [facility] ([facility]) Body height 66.5 [in_i] 66.5 [in_i] [facility] ([facility]) 5'6.50" Systolic blood pressure 124 mm[Hg] 124 mm[Hg] M EDENT ([facility]) Body weight 321.00 [lb_av] 321.00 [lb_av] [facility] T ([facility]) Body mass index (BMI) [Ratio] 51.0 kg/m2 51.0 k g/m2 [facility] ([facility]) Body weight 321.4 [lb_av] 321.4 [lb_av] eCW1 ([facility]) Body height [in_i] eCW1 ([facility]) Body mass index (BMI) [Ratio] 51.09 kg/m2 51.09 kg/m2 eCW1 ([facility]) Body weight 318.8 [lb_av] 318.8 [lb_av] eCW1 ([facility]) Body height [in_i] eCW1 ([facility]) Body mass index (BMI) [Ratio] 50.68 kg/m2 50.68 kg/m2 eCW1 ([facility]) Body weight 316.2 [lb_av] 316.2 [lb_av] eCW1 ([facility]) Body height [in_i] eCW1 ([facility]) Body mass index (BMI) [Ratio] 50.27 kg/m2 50.27 kg/m2 eCW1 ([facility]) Systolic blood pressure 112 mm[Hg] 112 mm[Hg] M EDENT ([facility]) RT Arm Diastolic blood pressure 80 mm[Hg] 80 mm[Hg] [facility] ([facility]) RT Arm Heart rate 76 /min 76 /min [facility] ([facility]) Body height 66.5 [in_i] 66.5 [in_i] [facility] ([facility]) 5'6.50" Body weight 318.12 [lb_av] 318.12 [lb_av] [facility] T ([facility]) Body mass index (BMI) [Ratio] 50.6 kg/m2 50.6 k g/m2 [facility] ([facility]) Body weight 318.6 [lb_av] 318.6 [lb_av] eCW1 ([facility]) Body height [in_i] eCW1 ([facility]) Body mass index (BMI) [Ratio] 50.65 kg/m2 50.65 kg/m2 eCW1 ([facility]) Systolic blood pressure 128 mm[Hg] 128 mm[Hg] M EDENT ([facility]) Diastolic blood pressure 78 mm[Hg] 78 mm[Hg] [facility] ([facility]) Heart rate 72 /min 72 /min [facility] ([facility]) Body height 66.5 [in_i] 66.5 [in_i] [facility] ([facility]) 5'6.50" Body weight 313.00 [lb_av] 313.00 [lb_av] [facility] T ([facility]) Body mass index (BMI) [Ratio] 49.8 kg/m2 49.8 k g/m2 [facility] ([facility]) Heart rate 90 /min 90 /min [facility] Body height 66.5 [in_i] 66.5 [in_i] [facility] ([facility]) 5'6.50" Body weight 318.00 [lb_av] 318.00 [lb_av] [facility] T ([facility]) Oxygen saturation in Arterial blood by Pulse oximetry 97 % 97 % [facility] ([facility]) RM Air Body mass index (BMI) [Ratio] 50.6 kg/m2 50.6 k g/m2 [facility] ([facility]) Body weight 311.00 [lb_av] 311.00 [lb_av] [facility] T ([facility]) Body mass index (BMI) [Ratio] 50.2 kg/m2 50.2 k g/m2 [facility] ([facility]) Body temperature 96.6 [degF] 96.6 [degF] [facility] ([facility]) Body height 66 [in_i] 66 [in_i] [facility] ([facility]) 5'6" Heart rate 88 /min 88 /min [facility] ([facility]) Body height 66.5 [in_i] 66.5 [in_i] [facility] ([facility]) 5'6.50" Oxygen saturation in Arterial blood by Pulse oximetry 96 % 96 % [facility] ([facility]) RM Air Systolic blood pressure 128 mm[Hg] 128 mm[Hg] M [facility]ENT ([facility]) Diastolic blood pressure 70 mm[Hg] 70 mm[Hg] [facility] ([facility]) Body weight 325.00 [lb_av] 325.00 [lb_av] [facility] T ([facility]) Systolic blood pressure 124 mm[Hg] 124 mm[Hg] M [facility] ([facility]) Diastolic blood pressure 78 mm[Hg] 78 mm[Hg] [facility] ([facility]) Heart rate 88 /min 88 /min [facility]) Body height 66.5 [in_i] 66.5 [in_i] [facility] ([facility]) 5'6.50" Oxygen saturation in Arterial blood by Pulse oximetry 98 % 98 % [facility] ([facility]) Body mass index (BMI) [Ratio] 51.7 kg/m2 51.7 k g/m2 [facility] ([facility]) Body weight 310.00 [lb_av] 310.00 [lb_av] [facility] T ([facility]) Systolic blood pressure 126 mm[Hg] 126 mm[Hg] [facility] ([facility], [facility]) Diastolic blood pressure 74 mm[Hg] 74 mm[Hg] [facility] ([facility], [facility]) Heart rate 93 /min 93 /min [facility] ([facility]) Respiratory rate 16 /min 16 /min [facility] ( [facility], [facility]) Oxygen saturation in Arterial blood by Pulse oximetry 96 % 96 % [facility] ([facility]) Body height 66.5 [in_i] 66.5 [in_i] [facility] ([facility], [facility]) 5'6.50" Body mass index (BMI) [Ratio] 49.3 kg/m2 49.3 k g/m2 [facility] ([facility], [facility]) Body temperature 97.7 [degF] 97.7 [degF] [facility] ([facility])
[2021-04-26 19:29] LABS: BASO % 0.2 % (0.0-1.0); EOS % 0.1 % (0.0-3.0); HEMATOCRIT 41.6 % (36.0-47.0); HEMOGLOBIN 14.2 g/dl (12.0-15.5); LYMPH % 11.9 % (24.0-44.0); MEAN CORPUSCULAR HEMOGLOBIN 31.7 pg (27.0-33.0); MEAN CORPUSCULAR HGB CONC 34.1 g/dl (32.0-36.5); MEAN CORPUSCULAR VOLUME 92.9 fl (80.0-96.0); MONO # 0.4 10^3/uL (0.0-0.8); MONO % 4.5 % (2.0-8.0); NEUTROPHILS # 7.2 10^3/uL (1.5-8.5); NEUTROPHILS % 83.1 % (36.0-66.0); PLATELET COUNT, AUTOMATED 147 10^3/uL (150-450); RED BLOOD COUNT 4.48 10^6/uL (4.00-5.40); WHITE BLOOD COUNT 8.7 10^3/uL (4.0-10.0)
[2021-04-26 19:57] LABS: ALBUMIN 3.5 GM/DL (3.2-5.2); ALT/SGPT 21 U/L (12-78); BILIRUBIN,DIRECT 0.1 MG/DL (0.0-0.2); BILIRUBIN,TOTAL 0.5 MG/DL (0.2-1.0); BLOOD UREA NITROGEN 13 MG/DL (7-18); CARBON DIOXIDE LEVEL 27 MEQ/L (21-32); CHLORIDE LEVEL 105 MEQ/L (98-107); CREATININE FOR GFR 0.81 MG/DL (0.55-1.30); GLOMERULAR FILTRATION RATE > 60.0 (>51); GLUCOSE, FASTING 204 MG/DL (70-100); LIPASE 117 U/L (73-393); POTASSIUM SERUM 3.8 MEQ/L (3.5-5.1); SODIUM LEVEL 138 MEQ/L (136-145)
[2021-04-26 20:12] LABS: OSMOLALITY SERUM 293 MOSM/KG (275-295)
[2021-04-26] MEDS ORDERED: ISOVUE-370 76% 100ML VIAL As Ordered ONE (20:39)
--- NOTE | 2021-04-26 23:20 | REPVR ---
PROCEDURE INFORMATION: Exam: CT Head Without Contrast Exam date and time: 04/26/2021 10:04 PM Age: 60 years old Clinical indication: Dizziness; Additional info: Vertigo TECHNIQUE: Imaging protocol: Computed tomography of the head without contrast. Radiation optimization: All CT scans at this facility use at least one of these dose optimization techniques: automated exposure control; mA and/or kV adjustment per patient size (includes targeted exams where dose is matched to clinical indication); or iterative reconstruction. COMPARISON: No relevant prior studies available. FINDINGS: Brain: There is no evidence of intracranial bleed. There is a 2 cm patchy area of low density within the white matter right frontal parietal region. There is a 1.5 cm low-density area within the white matter left frontal parietal region. A small area of low density is noted in the left posterior parietal lobe white matter. These areas are probably the result of old ischemic changes. The ventricles are normal in size. Paranasal sinuses: Clear paranasal sinuses. Mastoid air cells: Clear mastoid air cells. Orbital cavity: Symmetric orbits. Bones/joints: Unremarkable. No acute fracture. Soft tissues: There is no evidence of soft tissue swelling. IMPRESSION: Patchy areas of low density through the white matter probably the result of chronic ischemic change. Electronically signed by: Sebastian Nam On 04/26/2021 23:19:47 PM
--- NOTE | 2021-04-26 23:24 | REPVR ---
PROCEDURE INFORMATION: Exam: CT Abdomen And Pelvis With Contrast Exam date and time: 04/26/2021 10:04 PM Age: 60 years old Clinical indication: Vomiting; Additional info: Vomiting and diarrhea TECHNIQUE: Imaging protocol: Computed tomography of the abdomen and pelvis with contrast. Radiation optimization: All CT scans at this facility use at least one of these dose optimization techniques: automated exposure control; mA and/or kV adjustment per patient size (includes targeted exams where dose is matched to clinical indication); or iterative reconstruction. Contrast material: ISOVUE 370; Contrast volume: 100 ml; Contrast route: INTRAVENOUS (IV); COMPARISON: CR PORTABLE CHEST X-RAY 2021-04-26 18:48 FINDINGS: Limitations: Limited by patient's body habitus. Liver: Normal. No mass. Gallbladder and bile ducts: Normal. No calcified stones. No ductal dilation. Pancreas: Normal. No ductal dilation. Spleen: Normal. No splenomegaly. Adrenal glands: Normal. No mass. Kidneys and ureters: Benign 3.2 cm simple left renal cyst. Stomach and bowel: Unremarkable. No obstruction. No mucosal thickening. Appendix: No evidence of appendicitis. Intraperitoneal space: Unremarkable. No free air. No significant fluid collection. Vasculature: Unremarkable. No abdominal aortic aneurysm. Lymph nodes: Unremarkable. No enlarged lymph nodes. Urinary bladder: Unremarkable as visualized. Reproductive: Unremarkable as visualized. Bones/joints: Severe L4-L5 spinal stenosis. Mild levoconvex lumbar curvature. Soft tissues: Abdominal wall large hernia containing protruding transverse large bowel, and abdominal fat without obstruction. IMPRESSION: 1. Abdominal wall large hernia containing protruding transverse large bowel, and abdominal fat without obstruction. 2. Severe L4-L5 spinal stenosis. COMMENTS: Consistent with the [employer]'s Incidental Findings Committee white paper (J Am Stephani Radiol 2018): Any incidental renal lesion less than 1 cm or classified as too small to characterize, or any incidental cystic renal lesion characterized as simple-appearing, is likely benign. No follow-up imaging is recommended for these lesions per consensus recommendations based on imaging criteria. Electronically signed by: Riccardo Lawton On 04/26/2021 23:24:13 PM
[2021-04-26] MEDS ORDERED: ONDA4TAB6 PO (23:31)
[2021-04-27 00:01] VITALS: BP 161/89
--- NOTE | 2021-04-27 01:15 | ECGEPIP ---
[facility] - ED Test Date: 2021-04-26 Pat Name: ANTONIO CHARLES Department: Room: - Gender: Female Alteration Tailor: MANDEEP : 1960 Requested By: RICCARDO Garsia Order Number: [id number] Reading MD: Riccardo Awan Measurements Intervals [place] Rate: 81 P: 47 IN: 186 QRS: 7 QRSD: 92 T: 46 QT: 402 QTc: 466 Interpretive Statements Normal sinus rhythm Comparison tracing not on file Electronically Signed on 04-27-2021 1:15:03 EDT by Riccardo Awan
== END 2021-04-27 00:07 | disposition home or self-care (01) ==
LOC: M ED 17:54
DX: R42 Dizziness and giddiness (principal); R11.2 Nausea with vomiting, unspecified; R19.7 Diarrhea, unspecified; K43.6 Other and unspecified ventral hernia with obstruction, without gangrene; E11.9 Type 2 diabetes mellitus without complications; E78.5 Hyperlipidemia, unspecified; Z88.2 Allergy status to sulfonamides; Z79.899 Other long term (current) drug therapy; Z79.4 Long term (current) use of insulin
CPT/HCPCS: 70450; 71045; 74177; 80048; 80076; 81001; 83605; 83690; 83930; 85025; 87086; 93005; 93041; 96360; 96361; 99284; Q9967

== ENCOUNTER → 2021-05-24 | Outpatient (CLI) | payer BC ==
[~2021-05-24] MED LIST changes: +DULA3PEN; +METF750T36; +ONDA4TAB6 PO; +PROHANCE 279.3MG/ML 15ML VIAL As Ordered ONE; +PROHANCE 279.3MG/ML 5ML VIAL As Ordered ONE; +ROSU10TA6; +TRES1INJ
--- NOTE | 2021-05-25 09:49 | REPVR ---
PROCEDURE INFORMATION: Exam: MR Head Without and With Contrast Exam date and time: 05/24/2021 5:21 PM Age: 61 years old Clinical indication: Vertigo. TECHNIQUE: Imaging protocol: MR of the head without and with intravenous contrast. Contrast material: PROHANCE; Contrast volume: 20 ml; Contrast route: INTRAVENOUS (IV); COMPARISON: CT Head without contrast 04/26/2021 9:43 PM FINDINGS: Brain: There is extensive high signal abnormality in the periventricular white matter and centrum semiovale, best seen on the flair images. These changes are nonspecific but consistent with chronic small vessel ischemic disease which is common in older patients. Foci of gliosis, chronic infarcts, and/or demyelination cannot be excluded. Cerebral ventricles: Normal. No ventriculomegaly. Bones/joints: There is question of mild enhancement along the anterior frontal lobes, inseparable from hyperostosis arising from the inner table of the frontal bones. These changes could represent small underlying meningiomas. Paranasal sinuses: Normal as visualized. No acute sinusitis. Mastoid air cells: Normal as visualized. No mastoid effusion. Orbital cavity: Unremarkable. Soft tissues: Unremarkable. IMPRESSION: 1. There is extensive high signal abnormality in the periventricular white matter and centrum semiovale, best seen on the flair images. These changes are nonspecific but consistent with chronic small vessel ischemic disease which is common in older patients. Foci of gliosis, chronic infarcts, and/or demyelination cannot be excluded. No acute infarct is identified. 2. There is question of mild enhancement along the anterior frontal lobes, inseparable from hyperostosis arising from the inner table of the frontal bones. These changes could represent small underlying meningiomas. This is difficult to fully characterize on this exam. Direct comparison to prior postcontrast MRI is recommended. In the absence of prior postcontrast MRIs, followup postcontrast MRI in 3 months is recommended to confirm stability over time. Electronically signed by: Tej Laurent On 05/25/2021 09:48:51 AM
--- NOTE | 2021-05-25 09:53 | REPVR ---
PROCEDURE INFORMATION: Exam: MRA Head Without Contrast; Arteriography Exam date and time: 05/24/2021 5:21 PM Age: 61 years old Clinical indication: Vertigo. TECHNIQUE: Imaging protocol: Magnetic resonance angiography head without contrast. Exam focused on the arteries. COMPARISON: CT Head without contrast 04/26/2021 9:43 PM FINDINGS: ANTERIOR CIRCULATION: Right internal carotid artery: Intracranial segment is patent with no significant stenosis. No aneurysm. Right middle cerebral artery: No occlusion or significant stenosis. No aneurysm. Right anterior cerebral artery: No occlusion or significant stenosis. No aneurysm. Left internal carotid artery: Intracranial segment is patent with no significant stenosis. No aneurysm. Left middle cerebral artery: No occlusion or significant stenosis. No aneurysm. Left anterior cerebral artery: No occlusion or significant stenosis. No aneurysm. POSTERIOR CIRCULATION: Right vertebral artery: No occlusion or significant stenosis. No aneurysm. Left vertebral artery: No occlusion or significant stenosis. No aneurysm. Basilar artery: No occlusion or significant stenosis. No aneurysm. Right posterior cerebral artery: No occlusion or significant stenosis. No aneurysm. Left posterior cerebral artery: No occlusion or significant stenosis. No aneurysm. IMPRESSION: No stenosis or occlusion. Electronically signed by: Tej Laurent On 05/25/2021 09:53:22 AM
== END ==
LOC: M RAD 16:38
PROVIDERS: ATTEND Internal Medicine
DX: R42 Dizziness and giddiness (principal)

== ENCOUNTER → 2021-09-03 | Outpatient (CLI) | payer BC | LOC: M RAD 10:20 | PROVIDERS: ATTEND Internal Medicine | DX: R94.02 Abnormal brain scan (principal); R42 Dizziness and giddiness | CPT/HCPCS: 70553; A9576 ==

== ENCOUNTER → 2021-09-30 | Outpatient (CLI) | payer BC ==
[~2021-09-30] MED LIST changes: -PROHANCE 279.3MG/ML 15ML VIAL As Ordered ONE; -PROHANCE 279.3MG/ML 5ML VIAL As Ordered ONE
== END ==
LOC: M WHC 15:20
PROVIDERS: ATTEND Internal Medicine
DX: Z12.31 Encounter for screening mammogram for malignant neoplasm of breast (principal)

== ENCOUNTER → 2023-02-01 | Outpatient (CLI) | payer BC | LOC: M WHC 09:52 | PROVIDERS: ATTEND Internal Medicine | DX: Z12.31 Encounter for screening mammogram for malignant neoplasm of breast (principal) ==

== ENCOUNTER → 2023-05-09 | Outpatient (REF) | payer BC | LOC: M LAB REF 17:14 | PROVIDERS: ATTEND Internal Medicine | DX: E78.00 Pure hypercholesterolemia, unspecified (principal) ==

== ENCOUNTER 2023-07-24 15:55 | Emergency (ER) | payer BC ==
[~2023-07-24] VITALS: Ht 167.6 cm; Wt 125.1 kg
[2023-07-24] MEDS ORDERED: TIMOLOL (16:34)
[2023-07-24 17:10] LABS: VENOUS BASE EXCESS 1.1 (-2.0-2.0); VENOUS HCO3 26.2 MMOL/L (23.0-27.0); VENOUS O2 SATURATION 67.4 % (60.0-80.0); VENOUS PARTIAL PRESSURE CO2 42.9 mmHg (38.0-50.0); VENOUS PARTIAL PRESSURE O2 33.1 mmHg (30.0-50.0); VENOUS PH 7.403 UNITS (7.330-7.430); VENOUS STANDARD HCO3 24.7 MMOL/L; VENOUS TOTAL CO2 27.5 MMOL/L (24.0-28.0)
[2023-07-24 17:20] LABS: BASO % 0.2 % (0.0-1.0); EOS % 0.4 % (0.0-3.0); HEMATOCRIT 40.6 % (36.0-47.0); HEMOGLOBIN 14.5 g/dl (12.0-15.5); LYMPH # 0.6 10^3/uL (1.5-5.0); LYMPH % 10.5 % (24.0-44.0); MEAN CORPUSCULAR HEMOGLOBIN 32.2 pg (27.0-33.0); MEAN CORPUSCULAR HGB CONC 35.7 g/dl (32.0-36.5); MEAN CORPUSCULAR VOLUME 90.2 fl (80.0-96.0); MONO # 1.1 10^3/uL (0.0-0.8); MONO % 20.4 % (2.0-8.0); NEUTROPHILS # 3.8 10^3/uL (1.5-8.5); PLATELET COUNT, AUTOMATED 185 10^3/uL (150-450); WHITE BLOOD COUNT 5.5 10^3/uL (4.0-10.0)
[2023-07-24 17:38] LABS: OSMOLALITY SERUM 289 MOSM/KG (280-301)
[2023-07-24 17:41] LABS: HEMOGLOBIN A1c 8.6 % (4.0-6.0)
[2023-07-24 17:42] LABS: ETHYL ALCOHOL (ETHANOL) < 0.003 % (0.000-0.010); LIPASE 33 U/L (12-53)
[2023-07-24 17:44] LABS: ACETONE/KETONE 1.31 MMOL/L (0.02-0.27); ALBUMIN 2.9 G/DL (3.2-5.2); ALKALINE PHOSPHATASE 93 U/L (46-116); ALT/SGPT 15 U/L (7.0-40); AST/SGOT 21 U/L (<34); BILIRUBIN,DIRECT 0.2 MG/DL (<0.4); BILIRUBIN,TOTAL 0.8 MG/DL (0.3-1.2); BLOOD UREA NITROGEN 18 MG/DL (9-23); CALCIUM LEVEL 9.3 MG/DL (8.3-10.6); CARBON DIOXIDE LEVEL 25 MMOL/L (20-31); CHLORIDE LEVEL 94 MMOL/L (98-107); CREATININE FOR GFR 0.87 MG/DL (0.55-1.30); GLOMERULAR FILTRATION RATE > 60.0 (>45); GLUCOSE, FASTING 380 MG/DL (74-106); MAGNESIUM LEVEL 1.8 MG/DL (1.8-2.4); POTASSIUM SERUM 4.3 MMOL/L (3.5-5.1); SODIUM LEVEL 128 MMOL/L (136-145); TOTAL PROTEIN 6.7 G/DL (5.7-8.2)
[2023-07-24 18:18] LABS: AMPHETAMINES LEVEL URINE NEGATIVE (NEGATIVE); BARBITURATES URINE NEGATIVE (NEGATIVE); BENZODIAZEPINES URINE NEGATIVE (NEGATIVE); CANNABINOIDS URINE NEGATIVE (NEGATIVE); COCAINE METABOLITE URINE NEGATIVE (NEGATIVE); METHADONE URINE NEGATIVE (NEGATIVE); OPIATES URINE NEGATIVE (NEGATIVE); PHENCYCLIDINE URINE NEGATIVE (NEGATIVE)
[2023-07-24] MEDS ORDERED: cefTRIAXone SOD 1 GM in D5W MINI-BAG PLUS 50 ML IV ONE (19:25)
[2023-07-24] MEDS ORDERED: NS 1,000 ML IV ONE (19:25)
[2023-07-24] MEDS ORDERED: HumuLIN R (REGULAR) INSULIN (NovoLIN R) **100U/ML** PER UNIT IV ONE (19:25)
[2023-07-24] MEDS ORDERED: CEFD1CAP9 PO (20:22)
[2023-07-24 21:13] VITALS: BP 150/76; TEMP 98.2; O2SAT 99
== END 2023-07-24 21:15 | disposition home or self-care (01) ==
LOC: M ED 15:55
DX: E11.65 Type 2 diabetes mellitus with hyperglycemia (principal); N30.00 Acute cystitis without hematuria; E86.0 Dehydration; Z79.4 Long term (current) use of insulin; Z79.899 Other long term (current) drug therapy; Z88.2 Allergy status to sulfonamides
CPT/HCPCS: 71046; 80048; 80076; 80307; 81001; 82010; 82077; 82803; 83036; 83690; 83735; 83930; 84100; 85025; 87088; 87186; 87486; 87581; 87633; 87798; 93005; 96365; 96375; 99284; J0696; J1815

== ENCOUNTER → 2023-10-09 | Outpatient (CLI) | payer BC ==
[~2023-10-09] MED LIST changes: +CEFD1CAP9 PO; +TIMOLOL
[2023-10-09 17:13] LABS: FREE T3 3.2 PG/ML (2.3-4.2); FREE T4 1.23 NG/DL (0.89-1.76)
[2023-10-09 17:14] LABS: THYROID STIMULATING HORMONE 1.417 uIU/ML (0.55-4.78)
== END ==
LOC: M LAB 16:07
PROVIDERS: ATTEND Physician Assistant
DX: H05.20 Unspecified exophthalmos (principal)

== ENCOUNTER → 2024-02-01 | Outpatient (REF) | payer BC ==
[~2024-02-01] MED LIST changes: +ONDA-282 PO; -ONDA4TAB6 PO; -ROSU10TA6; +ROSU10TA61
== END ==
LOC: M LAB REF 16:38
PROVIDERS: ATTEND Nurse Practitioner Adult Health
DX: R21 Rash and other nonspecific skin eruption (principal)

== ENCOUNTER → 2024-02-06 | Outpatient (CLI) | payer BC | LOC: M WHC 16:34 | PROVIDERS: ATTEND Internal Medicine | DX: Z12.31 Encounter for screening mammogram for malignant neoplasm of breast (principal) ==

== ENCOUNTER → 2024-05-24 | Outpatient (REF) | payer BC | LOC: M LAB REF 16:18 | PROVIDERS: ATTEND Physician Assistant | DX: L02.214 Cutaneous abscess of groin (principal) ==

== ENCOUNTER → 2024-07-25 | Outpatient (REF) | payer BC | LOC: M LAB REF 16:40 | PROVIDERS: ATTEND Nurse Practitioner Family | DX: N39.0 Urinary tract infection, site not specified (principal) ==

== ENCOUNTER → 2025-02-27 | Outpatient (CLI) | payer BC | LOC: M WHC 14:51 | PROVIDERS: ATTEND Nurse Practitioner Adult Health | DX: Z12.31 Encounter for screening mammogram for malignant neoplasm of breast (principal); R92.313 Mammographic fatty tissue density, bilateral breasts ==